=== PATIENT | female | born 1955 | race Caucasian/White ===

== ENCOUNTER → 2020-11-25 10:24 | Outpatient (CLI) | payer MEDICARE, SELFPAY ==
--- NOTE | ~2020-11-25 | XR_ITS ---
XR tibia fibula LT 2V DATE: 11/25/2020 11:12 INDICATION: Pain TECHNIQUE: AP and lateral views COMPARISON: 11/25/2020 left ankle FINDINGS: Status post total knee arthroplasty and patellar resurfacing. Diffuse osteopenia. No fracture, dislocation, periosteal reaction or bone destruction of the tibia or fibula. IMPRESSION: Status post left total knee arthroplasty with patellar resurfacing Osteopenia Reviewed, dictated and finalized at location B.
--- NOTE | ~2020-11-25 | XR_ITS ---
XR ankle LT min 3V DATE: 11/25/2020 11:12 INDICATION: Left ankle and foot pain TECHNIQUE: 4 views COMPARISON: None FINDINGS: Plantar and posterior calcaneal enthesopathy. Distal Achilles tendon calcification. Probable old cortical avulsion fracture at the dorsal aspect of the tarsal navicular bone. No left ankle fracture or dislocation or disruption of the ankle mortise. No periosteal reaction or b one destruction. IMPRESSION: Plantar and posterior calcaneal enthesopathy, distal Achilles tendon calcification Probable old cortical avulsion fracture of the dorsal aspect of the tarsonavicular bone Reviewed, dictated and finalized at location B. IMPRESSION: Plantar and posterior calcaneal enthesopathy, distal Achilles tendo n calcification Probable old cortical avulsion fracture of the dorsal aspect of the tarsonavicu lar bone
--- NOTE | ~2020-11-25 | XR_ITS ---
XR foot LT 2V DATE: 11/25/2020 11:12 INDICATION: Left foot pain TECHNIQUE: AP and lateral views COMPARISON: No prior left foot radiographs for comparison FINDINGS: There is a linear intra-articular minimally displaced fracture of the dorsal aspect of the dorsal navicular bone of uncertain age. This might be recent. No other fracture or dislocation is detected. Plantar and posterior calcaneal enthesopathy and distal Achilles tendon calcification. No periosteal reaction or bone destruction. IMPRESSION: Dorsal tarsal navicular intra-articular minimally displaced fracture of uncertain age; th is may be recent Reviewed, dictated and finalized at location B. IMPRESSION: Dorsal tarsal navicular intra-articular minimally displaced fractur e of uncertain age; this may be recent
== END ==
PROVIDERS: PCP Internal Medicine; Visit Provider Nurse Practitioner
DX: S92.252A Displaced fracture of navicular [scaphoid] of left foot, initial encounter for closed fracture (principal); M85.862 Other specified disorders of bone density and structure, left lower leg
CPT/HCPCS: 73590; 73610; 73620

== ENCOUNTER → 2021-01-17 08:23 | Outpatient (CLI) | payer MEDICARE, SELFPAY ==
--- NOTE | ~2021-01-17 | DEXA_ITS ---
Bone Density Report Name: Jacqui Fatima Age: 65 Sex: Female Ethnicity: White Date of : 1955 Indication: postmenopausal; screening for osteoporosis; height loss; prior fracture; end stage renal disease; hysterectomy; Referring Provider: Phylicia Deshpande Study: Bone densitometry was performed. Exam Date: January 17, 2021 Accession number: [id number] Bone Density: Region BMD T-score Z-score Classification AP Spine (L1-L4) 0.898 -1.4 0.5 Osteopenia Femoral Neck (Left) 0.692 -1.4 0.2 Osteopenia Total Hip (Left) 0.857 -0.7 0.6 Normal Femoral Neck (Right) 0.675 -1.6 0.0 Osteopenia Total Hip (Right) 0.843 -0.8 0.5 Normal Total Hip Mean 0.850 -0.8 0.6 Normal World Health Organization criteria for BMD impression classify patients as: Normal (T-score at or above -1.0), Osteopenia (T-score between -1.0 and -2.5), or Osteoporosis (T-score at or below -2.5). 10-year Fracture Risk(1): Major Osteoporotic Fracture 14% Hip Fracture 1.6% Reported Risk Factors: [place] (), Neck BMD=0.675, BMI=32.5, previous fracture (1) FRAX(R) Version 3.08. Fracture probability calculated for an untreated patient. Fracture probability may be lower if the patient has received treatment. Clinical Information Provided by Patient: Has had a low trauma fracture Has the following medical conditions: End stage renal disease, Hysterectomy, STAGE 3 RENAL DISEASE Patient maximum height was 67 Menopause Age: 49 No regular weight bearing exercise Does not regularly consume dairy products Onset of menses at age 16 Number of children 3 Impression: The patient has low bone mass, based on the Right Femoral Neck T-score. The patient has an estimated ten-year risk of hip fracture of 1.6% and an estimated ten-year risk of major fracture of 14%, based on the WHO FRAX algorithm. The patient has risk factors, including: previous fracture. Discussion: BONE DENSITY IS LOW AT ONE OR MORE SKELETAL SITES. This patient's lowest T-score is low at one or more skeletal sites. It meets the World Health Organization's (WHO) criteria for ?low bone mass? (T-score between -1.0 and -2.5). The patient's 10-year risk of fracture as calculated by FRAX is less than the threshold where pharmacological therapy is recommended by the National Osteoporosis Foundation (NOF). However, all treatment decisions require clinical judgment and consideration of individual patient factors, including patient preferences, comorbidities, previous drug use, risk factors not captured in the FRAX model (e.g., frailty, falls, vitamin D deficiency, increased bone turnover, interval significant decline in bone density) and possible under or overestimation of fracture risk by FRAX. The patient should follow a healthful lifestyle (good nutrition with adequate calcium and vitamin D,
--- NOTE | ~2021-01-17 | MM_ITS ---
EXAMINATION: MM screening [facility] BI w spenser HISTORY: Screening mammogram TECHNIQUE: Craniocaudal and mediolateral oblique 3-D tomosynthesis images were obtained and synthetic 2-D images were generated. CAD analysis was submitted and interpreted. COMPARISON: 05/08/2019, 02/12/2016, 04/14/2011 BREAST PARENCHYMAL COMPOSITION: There are scattered areas of fibroglandular density. FINDINGS: There is no evidence of suspicious mass, calcification, or architectural distortion to sugg est malignancy in either breast. There has been no suspicious interval change. IMPRESSION: 1. No mammographic evidence of malignancy. 2. Recommend routine screening mammography in one year. BI-RADS Category 1: Negative Reviewed, dictated and finalized at location A.
== END ==
PROVIDERS: Visit Provider Nurse Practitioner
DX: Z12.31 Encounter for screening mammogram for malignant neoplasm of breast (principal); Z78.0 Asymptomatic menopausal state; M85.89 Other specified disorders of bone density and structure, multiple sites
CPT/HCPCS: 77063; 77067; 77080

== ENCOUNTER → 2022-01-09 11:37 | Outpatient (CLI) | payer MEDICARE, SELFPAY ==
--- NOTE | ~2022-01-09 | XR_ITS ---
EXAMINATION: XR chest 2V Exam Date/Time: 01/09/2022 11:40 CDT HISTORY: R05.9 - Cough, unspecified Comparison: 03/19/2018. RESULT: Lines, tubes, and devices: None. Lungs and pleura: Subtle diffuse reticulonodular opacities. Right lower lung granuloma. Cardiomediastinal silhouette: Stable cardiomediastinal silhouette. Other: No acute osseous or upper abdominal finding. IMPRESSION: Pulmonary opacities may reflect mild senescent change or bronchiolitis, as can be seen with atypical infection, asthma, aspiration, and small airways disease. Reviewed, dictated and finalized at location K.
== END ==
PROVIDERS: PCP Internal Medicine; Visit Provider Nurse Practitioner
DX: R05.9 Cough, unspecified (principal); R91.8 Other nonspecific abnormal finding of lung field
CPT/HCPCS: 71046

== ENCOUNTER → 2022-01-19 14:46 | Outpatient (CLI) | payer MEDICARE, SELFPAY ==
--- NOTE | ~2022-01-19 | XR_ITS ---
EXAMINATION: XR chest 2V 01/19/2022 15:26 INDICATION: Cough PROCEDURE: 2 view chest COMPARISON: Comparison to multiple prior studies sequentially, with oldest reviewed study dated 02/20. FINDINGS: The lungs are clear. The cardiomediastinal silhouette is within normal limits. There are no pleural effusions. There is no pneumothorax suspected. IMPRESSION: 1: NO ACUTE CARDIOPULMONARY DISEASE. Reviewed, dictated and finalized at location A.
== END ==
PROVIDERS: PCP Internal Medicine; Visit Provider Nurse Practitioner
DX: R05.9 Cough, unspecified (principal)
CPT/HCPCS: 71046

== ENCOUNTER 2022-05-15 08:32 | Outpatient (CLI) | payer MEDICARE, SELFPAY ==
--- NOTE | ~2022-05-15 | XR_ITS ---
XR chest 2V DATE: 05/15/2022 09:59 INDICATION: Cough TECHNIQUE: PA and lateral views COMPARISON: 01/19/2022 2 view chest FINDINGS: Normal heart size. Aortic arch calcification. No hilar or mediastinal enlargement. No pulmo nary infiltrate or consolidation, pleural effusion or pulmonary vascular congestion or pneumothorax. Osteopenia. IMPRESSION: No active cardiopulmonary disease Aortic atherosclerosis No significant change since 01/19/2022 Reviewed, dictated and finalized at location A.
--- NOTE | 2022-05-15 09:03 | ECHO_ITS ---
Patient Info Name: Jacqui Fatima Age: 66 years : 1955 Gender: Female Ht: 67 in Wt: 205 lbs BSA: 2.13 m2 HR: 78 bpm BP: 105 / 66 mmHg Technical Quality: Good Exam Date: 05/15/2022 9:34 AM Exam Location: [facility] Patient Status: Outpatient Admit Date: 05/15/2022 Staff Ordering Physician: Tim Perera APRN Program Attendant: Niharika Mercado RDCS Attending Provider: Tim Perera APRN Referring Physician: Trever COTTRELL; Exam Type: CA echo doppler color flow Study Info Indications - fatgue Complete two-dimensional, color flow and Doppler transthoracic echocardiogram is performed. Summary 1. Complete two-dimensional, color flow and Doppler transthoracic echocardiogram is performed. 2. Left ventricular chamber dimension is normal. 3. Left ventricular systolic function is normal, estimated at 60-65%. 4. The left ventricular diastolic function is abnormal. 5. E/e' 12 is mildly elevated. 6. Left atrial chamber dimension is mildly enlarged. 7. There is mild aortic valve sclerosis. 8. There is mild mitral valve regurgitation. 9. There is mild tricuspid valve regurgitation. 10. No pulmonary hypertension, estimated pulmonary arterial systolic pressure is 30 mmHg. Left Ventricle E/e' 12 is mildly elevated. Left ventricular chamber dimension is normal. Left ventricular systolic function is normal, estimated at 60-65%. The left ventricular diastolic function is abnormal. Right Ventricle Right ventricular chamber dimension is normal. Right ventricular systolic function is normal. Left Atria Left atrial chamber dimension is mildly enlarged. Right Atria Right atrial chamber dimension is normal. Aortic Valve The aortic valve is trileaflet. There is mild aortic valve sclerosis. There is no aortic valve stenosis. There is no aortic valve regurgitation. Pulmonic Valve There is no pulmonic regurgitation. Mitral Valve There is no mitral valve stenosis. There is mild mitral valve regurgitation. Tricuspid Valve There is mild tricuspid valve regurgitation. No pulmonary hypertension, estimated pulmonary arterial systolic pressure is 30 mmHg. Pericardium/Pleural There is no pericardial effusion. Inferior Vena Cava Normal inferior vena cava with >50% collapse upon inspiration consistent with normal right atrial pressure, 5 mmHg. Aorta The aortic root size at the sinus of Valsalva is normal. Left Ventricular Outflow Tract Name Value Normal LVOT 2D LVOT Diameter 2.0 cm LVOT Doppler LVOT Peak Gradient 5 mmHg LVOT Mean Gradient 3 mmHg LVOT VTI 28 cm LVOT VTI/AV VTI Ratio 0.8 LVOT Stroke Volume 86 ml LVOT CO 14.5 l/min LVOT CI 6.8 l/min/m2 Pulmonic Valve Name Value Normal
== END 2022-05-15 08:33 | disposition home or self-care (01) ==
PROVIDERS: PCP Internal Medicine; Visit Provider Nurse Practitioner
DX: R53.83 Other fatigue (principal); T50.B95A Adverse effect of other viral vaccines, initial encounter; Z79.899 Other long term (current) drug therapy; R05.9 Cough, unspecified; I70.0 Atherosclerosis of aorta; I34.0 Nonrheumatic mitral (valve) insufficiency; I36.1 Nonrheumatic tricuspid (valve) insufficiency; I35.0 Nonrheumatic aortic (valve) stenosis
CPT/HCPCS: 71046; 93306

== ENCOUNTER 2022-05-17 11:05 | Outpatient (CLI) | payer MEDICARE, SELFPAY ==
--- NOTE | ~2022-05-17 | US_ITS ---
EXAMINATION: US renal BI DATE: 05/17/2022 11:41 INDICATION: Stage IIIB chronic kidney disease TECHNIQUE: Multiple ultrasound grayscale images of the kidneys were obtained. COMPARISON: None. FINDINGS: The right kidney measures 9.6 x 4.1 x 4.6 cm. The left kidney measures 9.8 x 4.9 x 3.8 cm. The kidney s demonstrate normal echogenicity. There is no hydronephrosis in either kidney. No stones identified . The bladder is normal. IMPRESSION: 1. Normal kidneys without hydronephrosis. Reviewed, dictated and finalized at location A. FURRING INSTALLER
== END 2022-05-17 11:06 | disposition home or self-care (01) ==
PROVIDERS: PCP Internal Medicine; Visit Provider Internal Medicine Nephrology
DX: N18.32 Chronic kidney disease, stage 3b (principal)
CPT/HCPCS: 76775

== ENCOUNTER 2022-07-01 10:55 | Outpatient (CLI) | payer MEDICARE, SELFPAY ==
--- NOTE | 2022-06-25 12:54 | PC.NURSE ---
Pre Radiology instructions Report to the outpatient [facility] on date _07/01/22 @ 1100____ Procedure Time: _1PM___ YOU MAY BE MONITORED AT HOSPITAL FOR UP TO 4 HOURS AFTER YOUR PROCEDURE. A visitors will be allowed to accompany the patient into the hospital. ?The visitor will be instructed to remain with patient at all times or leave the building due to restrictions.? We will allow the visitor to come back to the postoperative area when patient is ready.? NO children visitors allowed at this time. You and your visitor will be asked to self-screen and do not enter if you have any COVID symptoms. A mask is REQUIRED within the hospital. Patients are to have no food or drink 6 hours prior to procedure time ([id number] AM) Driving will be restricted after the procedure, you must have a person to drive you home. Labs will be drawn in preop area and once reviewed, you will be taken to radiology area for procedure. When the procedure is completed, you will be taken to outpatient where you will be monitored for several hours. You may have one visitor in this area. Other than holding anti-coagulants, patient may take other medication(s) as scheduled. Prior to your appointment date patients are instructed to hold anti-coagulants after discussing with ordering provider to stop. If unable to discontinue anti-coagulants please notify radiologist. ? No aspirin or warfarin (Coumadin) for 7 days prior to the procedure. ? No clopidogrel (Plavix), ticagrelor (Brilinta), prasugrel (Effient) or dabigatran (Pradaxa) for 5 days prior to the procedure. ? No rivaroxaban (Xarelto), apixaban (Eliquis), dipyridamole (Aggrenox or Persantine) or cilostazol (Pletal) for 2 days prior to the procedure. Medications to discontinue per physician: ___N/A Date to take last dose: Please leave all valuables, including medications, at home the day of procedure. The hospital will not accept responsibility for valuables. Wear comfortable, loose fitting clothing.? Follow any additional instructions given to you from ordering provider. Telephone instructions given to ____PT and asked if any additional questions and then verbalized understanding. Patient advised to call scheduling provider office or registration scheduling [phone] if any additional questions.
[2022-06-25 13:00] VITALS: BMI 34.0
[2022-07-01] VITALS (8 sets, daily range): BP systolic 92–123; BP diastolic 40–92; PULSE 51–76; RESP 12–16; TEMP 37.2; O2SAT 93–100
--- NOTE | ~2022-07-01 | US_ITS ---
EXAMINATION: US biopsy renal DATE: 07/01/2022 13:38 INDICATION: Chronic kidney disease stage III. TECHNIQUE: The procedure including the risks, benefits, and alternatives was discussed with the patie nt. Risks discussed included bleeding and infection. The patient understood the risks and agreed to p roceed. A timeout was performed to verify the patient's name, date of , and procedure to be p erformed. The skin overlying the left kidney was prepped and draped in usual sterile fashion. Anest hetic was administered with 1% lidocaine subcutaneously. An 18 gauge core biopsy needle was then use d to obtain 8 core biopsy specimens under continuous sonographic guidance. The entry site was cleaned and dressed. There were no immediate complications. FINDINGS: Ultrasound images demonstrate the needle in the kidney. IMPRESSION: 1. Ultrasound-guided random left kidney core needle biopsy. Reviewed, dictated and finalized at location A. UP AND CHARGER
[2022-07-01] MEDS: SODIUM CHLORIDE 0.9% IV 1,000 ML 30 ML IV CONT (11:36)
[2022-07-01 11:48] LABS: Mean Platelet Volume 11.5 fl (7.4-10.4); Platelet Count Result 160 k/mm3 (150-375)
[2022-07-01 11:57] LABS: INR 1.1; Prothrombin Time 13.5 Seconds (11.1-14.7)
== END 2022-07-01 16:32 | disposition home or self-care (01) ==
PROVIDERS: Radiology Diagnostic Radiology; PCP Internal Medicine; Visit Provider Internal Medicine Nephrology
PROC: (CPT 76942; principal; 2022-07-01 13:00)
DX: R76.0 Raised antibody titer (principal); N18.32 Chronic kidney disease, stage 3b; I12.9 Hypertensive chronic kidney disease with stage 1 through stage 4 chronic kidney disease, or unspecified chronic kidney disease
CPT/HCPCS: 36415; 50200; 76942; 85049; 85610; 88300; 88305; 88313; 88329; 88346; 88348; 88350; J7030

== ENCOUNTER 2023-02-03 08:50 | Outpatient (CLI) | payer MEDICARE, SELFPAY ==
--- NOTE | ~2023-02-03 | XR_ITS ---
EXAMINATION: XR UGIAC w barium swallow DATE: 02/03/2023 09:22 INDICATION: Chest pain TECHNIQUE: The patient drank thick barium, gas-producing crystals, and thin barium. A total of 1005 f luoroscopic images of the esophagus, stomach, and proximal small bowel were obtained. Fluoroscopy exp osure time was 1.5 minutes. Total DAP was 7.319 Gycm^2 COMPARISON: None. FINDINGS: The esophagus is normal without mass or stricture. Esophageal motility is normal. Small sli ding-type hiatal hernia with gastroesophageal junction located approximately 3 cm above level of the diaphragm. There was gastroesophageal reflux of a large amount of contrast extending cephalad to the level of the cervical esophagus with provocative maneuvers. 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 The proximal small bowel is normal. IMPRESSION: 1. Small sliding-type hiatal hernia with gastroesophageal reflux with provocative maneuvers. 2. 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 Reviewed, dictated and finalized at location A. IMPRESSION: 1. Small sliding-type hiatal hernia with gastroesophageal reflux with provocati ve maneuvers. 2. Decreased gastric opacity consistent with reported history of prior sleeve g astrectomy.
== END 2023-02-03 08:51 | disposition home or self-care (01) ==
PROVIDERS: PCP Nurse Practitioner Family; Visit Provider Nurse Practitioner Family
DX: K21.9 Gastro-esophageal reflux disease without esophagitis (principal); R07.89 Other chest pain; K44.9 Diaphragmatic hernia without obstruction or gangrene
CPT/HCPCS: 74246

== ENCOUNTER 2023-03-31 08:00 | Outpatient (CLI) | payer MEDICARE, SELFPAY ==
--- NOTE | ~2023-03-31 | MM_ITS ---
EXAMINATION: MM screening [facility] BI w spenser HISTORY: Screening TECHNIQUE: Craniocaudal and mediolateral oblique 3-D tomosynthesis images were obtained and synthetic 2-D images were generated. CAD analysis was submitted and interpreted. COMPARISON: Comparison to multiple prior studies sequentially, with oldest reviewed study dated 10/2025. BREAST PARENCHYMAL COMPOSITION: There are scattered areas of fibroglandular density. FINDINGS: There is no evidence of suspicious mass, calcification, or architectural distortion to sugg est malignancy in either breast. There has been no suspicious interval change. IMPRESSION: 1. No mammographic evidence of malignancy. 2. Recommend routine screening mammography in one year. BI-RADS Category 1: Negative Reviewed, dictated and finalized at location A.
== END 2023-03-31 08:01 | disposition home or self-care (01) ==
PROVIDERS: PCP Nurse Practitioner Family; Visit Provider Nurse Practitioner Family
DX: Z12.31 Encounter for screening mammogram for malignant neoplasm of breast (principal)
CPT/HCPCS: 77063; 77067

== ENCOUNTER 2023-09-09 14:52 | Outpatient (CLI) | payer MEDICARE, SELFPAY ==
--- NOTE | ~2023-09-09 | XR_ITS ---
EXAMINATION: XR chest 2V DATE: 09/09/2023 14:47 INDICATION: Cough. COVID-19 positive. TECHNIQUE: Frontal and lateral views of the chest were obtained. COMPARISON: Chest 2 views 05/15/2022 FINDINGS: There is no pneumonia, pleural effusion, or pneumothorax. The heart size is normal. IMPRESSION: 1. No acute cardiopulmonary disease. Reviewed, dictated and finalized at location A. NG MAKER HAND
[2023-09-09 15:57] LABS: Influenza A QL RT-PCR Negative (Negative); Influenza B QL RT-PCR Negative (Negative); RSV RNA, RT-PCR Negative (Negative); SARS-CoV-2 RNA PCR Negative (Negative)
== END 2023-09-09 14:53 | disposition home or self-care (01) ==
PROVIDERS: PCP Nurse Practitioner Family; Visit Provider Nurse Practitioner Family
DX: R05.9 Cough, unspecified (principal); R50.9 Fever, unspecified; R07.81 Pleurodynia; Z20.822 Contact with and (suspected) exposure to COVID-19
CPT/HCPCS: 71046; 87637

== ENCOUNTER 2023-10-13 13:16 | Outpatient (CLI) | payer MEDICARE, SELFPAY ==
--- NOTE | ~2023-10-13 | XR_ITS ---
XR chest 2V DATE: 10/13/2023 13:44 INDICATION: Shortness of breath, productive cough, fever TECHNIQUE: PA and lateral views COMPARISON: 09/09/2023 PA and lateral chest FINDINGS: Normal heart size. No hilar or mediastinal enlargement. No pulmonary infiltrate or consolid ation, pleural effusion or pulmonary vascular congestion or pneumothorax. Aortic arch calcification, minimal aortic unfolding. Osteopenia. IMPRESSION: No active cardiopulmonary disease Reviewed, dictated and finalized at location B.
[2023-10-13 14:55] LABS: Influenza A QL RT-PCR Negative (Negative); Influenza B QL RT-PCR Negative (Negative); RSV RNA, RT-PCR Negative (Negative); SARS-CoV-2 RNA PCR Negative (Negative)
== END 2023-10-13 13:17 | disposition home or self-care (01) ==
PROVIDERS: PCP Nurse Practitioner Family; Visit Provider Nurse Practitioner Family
DX: R50.9 Fever, unspecified (principal); J04.0 Acute laryngitis; R06.02 Shortness of breath; R05.9 Cough, unspecified
CPT/HCPCS: 71046; 87637

== ENCOUNTER 2024-05-15 11:36 | Outpatient (CLI) | payer MEDICARE, SELFPAY ==
[2024-05-15 11:55] LABS: Basophils Absolute Auto 0.1 K/mm3 (0.0-0.1); Basophils Percent Auto 1.1 % (0.2-1.2); Eosinophils Absolute Auto 0.1 K/mm3 (0-0.3); Eosinophils Percent Auto 2.5 % (0-4.4); Hematocrit 35.5 % (37.0-47.0); Hemoglobin 11.2 g/dL (12.0-15.0); Immature Granulocyte Absolute 0.02 K/mm3 (0.00-0.031); Immature Granulocyte Percent A 0.4 % (0-0.5); Lymphocytes Absolute Auto 1.22 K/mm3 (0.9-3.2); Lymphocytes Percent Auto 21.4 % (18.3-44.2); Mean Corpuscular HGB Conc 31.5 g/dl (32-36); Mean Corpuscular Hemoglobin 26.6 pg (26-34); Mean Corpuscular Volume 84.3 fl (80-100); Mean Platelet Volume 11.5 fl (7.4-10.4); Monocytes Absolute Auto 0.3 K/mm3 (0.1-0.6); Neutrophils Absolute Auto 3.9 K/mm3 (1.3-6.7); Neutrophils Percent Auto 68.6 % (45.5-73.1); Platelet Count Result 216 k/mm3 (150-375); Red Blood Count 4.21 M/mm3 (4.2-5.4); Red Cell Distribution Width 14.6 % (11.5-14.5); White Blood Count 5.7 K/mm3 (4.5-10.0)
[2024-05-15 14:55] LABS: Iron 28 ug/dL (37-170)
[2024-05-15 14:57] LABS: Alanine Aminotransferase 27 U/L (6-35); Albumin Level 4.4 g/dL (3.5-5.1); Alkaline Phosphatase 89 U/L (38-126); Anion Gap 10 mmol/L (4-12); Aspartate Amino Transferase 32 U/L (14-36); Bilirubin,Total 0.9 mg/dL (0.2-1.3); Blood Urea Nitrogen 15 mg/dL (7-17); Calcium 9.6 mg/dL (8.4-10.2); Carbon Dioxide 25 mmol/L (22-30); Chloride 103 mmol/L (98-107); Estimated Glomerular Filt Rate 41; Glucose 89 mg/dL (65-110); Potassium 3.5 mmol/L (3.4-5.0); Sodium 138 mmol/L (137-145)
[2024-05-15 15:04] LABS: Percent Iron Saturation 6 % (20-50)
[2024-05-15 15:30] LABS: Ferritin 9.77 ng/mL (11.1-264)
[2024-05-15 16:01] LABS: Folic Acid 6.1 ng/mL (2.76->20)
[2024-05-16 11:09] LABS: Protein, Total 6.6 g/dL (6.1-8.1)
[2024-05-21 16:08] LABS: Albumin 3.8 g/dL (3.8-4.8); Alpha 1 Globulin 0.3 g/dL (0.2-0.3); Alpha 2 Globulin 0.8 g/dL (0.5-0.9); Beta 1 Globulin 0.6 g/dL (0.4-0.6); Gamma Globulin 0.9 g/dL (0.8-1.7)
== END 2024-05-15 11:37 | disposition home or self-care (01) ==
PROVIDERS: Internal Medicine; PCP Nurse Practitioner Family; Visit Provider Internal Medicine Hematology & Oncology
DX: D64.9 Anemia, unspecified (principal)
CPT/HCPCS: 36415; 80053; 82607; 82728; 82746; 83540; 83550; 84155; 84165; 85025

== ENCOUNTER 2024-07-24 15:43 | Outpatient (CLI) | payer MEDICARE, SELFPAY ==
--- NOTE | ~2024-07-24 | XR_ITS ---
XR abdomen/kub 1V Ordering provider: Emilie Kohler APRN History: . N20.0 - Calculus of kidney . Comparison: None. FINDINGS: BOWEL: Nonobstructive bowel gas pattern. ORGANOMEGALY: None. SIGNIFICANT PATHOLOGIC CALCIFICATIONS: Cholelithiasis with calcification seen in the right upper abdo men. OTHER: No free air is seen under the diaphragm. Degenerative changes of the spine. IMPRESSION: NO ACUTE ABDOMINAL FINDINGS. Cholelithiasis. Ultrasound of the gallbladder is advised. Reviewed, dictated and finalized at location A. ET PRESIDENT
== END 2024-07-24 15:44 | disposition home or self-care (01) ==
LOC: MICIMG 15:45
PROVIDERS: PCP Nurse Practitioner Family; Visit Provider Nurse Practitioner Family
DX: N20.0 Calculus of kidney (principal)
CPT/HCPCS: 74018

== ENCOUNTER 2024-08-09 14:15 | Outpatient (CLI) | payer MEDICARE, SELFPAY ==
[2024-08-09 14:32] LABS: Basophils Absolute Auto 0.1 K/mm3 (0.0-0.1); Basophils Percent Auto 1.1 % (0.2-1.2); Eosinophils Absolute Auto 0.3 K/mm3 (0-0.3); Hematocrit 38.4 % (37.0-47.0); Hemoglobin 12.4 g/dL (12.0-15.0); Immature Granulocyte Absolute 0.03 K/mm3 (0.00-0.031); Immature Granulocyte Percent A 0.5 % (0-0.5); Lymphocytes Absolute Auto 1.22 K/mm3 (0.9-3.2); Lymphocytes Percent Auto 18.6 % (18.3-44.2); Mean Corpuscular HGB Conc 32.3 g/dl (32-36); Mean Corpuscular Hemoglobin 28.8 pg (26-34); Mean Corpuscular Volume 89.1 fl (80-100); Mean Platelet Volume 12.5 fl (7.4-10.4); Monocytes Absolute Auto 0.4 K/mm3 (0.1-0.6); Monocytes Percent Auto 5.8 % (2.6-8.5); Neutrophils Absolute Auto 4.6 K/mm3 (1.3-6.7); Platelet Count Result 187 k/mm3 (150-375); Red Blood Count 4.31 M/mm3 (4.2-5.4); Red Cell Distribution Width 18.1 % (11.5-14.5); White Blood Count 6.6 K/mm3 (4.5-10.0)
[2024-08-09 14:44] LABS: Anisocytosis 1+; Atypical Lymphocytes Present; Platelet Estimate Adequate (Adequate); Schistocytes None Seen
[2024-08-09 14:45] LABS: Ovalocytes 1+
--- OUTSIDE RECORDS SUMMARY | 2024-08-09 14:56 | XMS_ITS | Clinical Summary ---
Author Organization [facility] Andreina martinez Address [address] [place] [id number] Phone Care Team Providers Care Quality Process Lead Name Role Phone Reji Lucero Primary Care Provider [phone] Allergies No known active allergies Medications Medication Sig Dispensed Refills Start Date End Date Status hydroxychloroquine (PLAQUENIL) 200 MG tablet 02/12/2022 Active escitalopram (LEXAPRO) 10 MG tablet Take 10 mg by mouth 1 (one) time each day Active hydroCHLOROthiazide (HYDRODIURIL) 25 MG tablet Take 25 mg by mouth Prn swelling Active topiramate (TOPAMAX) 100 MG tablet Take 100 mg by mouth in the morning and 100 mg in the evening. Active diphenhydrAMINE (SOMINEX) 25 MG tablet Take 25 mg by mouth at night if needed Active amLODIPine-atorvastat in (CADUET) 5-20 MG per tablet Take 1 tablet by mouth in the morning and 1 tablet in the evening. Active Calcium Carbonate-Vit D-Min (CALCIUM 1200 PO) Take by mouth Active atorvastatin (LIPITOR) 20 MG tablet Take 20 mg by mouth 1 (one) time each day Active omeprazole (PriLOSEC) [address] capsule Take 20 mg by mouth 1 (one) time each day Active aspirin 81 MG chewable tablet Chew 81 mg 1 (one) time each day Active Cholecalciferol (Vitamin D3) 50 MCG (2000 UT) tablet Take 4,000 Units by mouth Active senna-docusate sodium (SENOKOT-S) 8.6-50 MG tablet Take 1 tablet by mouth in the morning and 1 tablet in the evening. Active folic acid (FOLVITE) 1 MG tablet Take 1 mg by mouth 1 (one) time each day Active Active Problems Problem Noted Date Diagnosed Date Chronic kidney disease stage 3B 05/10/2022 Nodule of lung 03/17/2022 Calcium pyrophosphate deposition disease 022 Coronary arteriosclerosis 08/03/2018 Overview (05/10/2022): Mild with just 30% plaque noted at the ostium of the right coronary artery with a calcified plaque the left main coronary artery, left anterior descending coronary artery and left circumflex arteries were without significant stenosis on CT coronary angiogr Dyslipidemia 06/09/2018 Overview (05/10/2022): On atorvastatin LDL not at goal for patient with coronary artery disease Transient cerebral ischemia 06/09/2018 Overview (05/10/2022): In August 2017 which has not recurred with an event monitor showing no evidence of atrial fibrillation in June 2018 Essential hypertension 09/16/2017 Essential tremor 09/16/2017 Social History Tobacco Use Types Packs/Day Years Used Date Smoking Tobacco: Former Cigarettes Smokeless Tobacco: Never Tobacco Cessation:Counseling Given: Not Answered Alcohol Use Standard Drinks/Week Comments Yes 0 (1 standard drink = 0.6 oz pur e alcohol) one a week Sex and Gender Information Value Date Recorded Sex Assigned at Not on file Gender Identity Not on file Sexual Orientation Not on file Last Filed Vital Signs Vital Sign Reading Time Taken Comments Blood Pressure - - Pulse - - Temperature 36.4 ??C (97.5 ??F) 05/10/2022 10:15 AM C DT Respiratory Rate - - Oxygen Saturation - - Inhaled Oxygen Concentration - - Weight 93.4 kg (206 lb) 05/10/2022 10:15 AM CDT Height 170.2 cm (5' 7 ) 05/10/2022 10:15 AM CDT Body Mass Index 32.26 05/10/2022 10:15 AM CDT Plan of Treatment Health Maintenance Due Date Last Done Comments Pneumococcal PPSV23/PCV13 65 + Years / High and Highest Risk (1 of 4 - PCV) 1961 Influenza Vaccine (#1) 2024 Care Teams Quality Process Lead Relationship Specialty Start Date End Date Reji Lucero DO [address] [place] [id number] PCP - General Internal Medicine 05/03/22
--- OUTSIDE RECORDS SUMMARY | 2024-08-09 14:56 | XMS_ITS | Encounter Summary ---
Author Organization [facility] Facility Care Team Providers Care Registered Dental Assistant Name Role Phone Denys Smith MD Primary Care Provider [phone] Reji Lucero DO Primary Care Provider [phone] Waqas Araujo MD Primary Care Provider [phone] Jace Cheek MD Unavailable [phone] Encounter Details Date Type Department Care Team (Latest Contact Info) Description 06/09/2018 Orders Only [facility] CLINCONV ProviderLencho MD [address] [place] [id number] Social History Tobacco Use Types Packs/Day Years Used Date Smoking Tobacco: Former Smokeless Tobacco: Never Alcohol Use Standard Drinks/Week Comments No 0 (1 standard drink = 0.6 oz pur e alcohol) Comments No Sex and Gender Information Value Date Recorded Sex Assigned at Not on file Legal Sex Female 11:42 PM ENVELOPE MACHINE OPERATOR Gender Identity Female 05/18/2022 8:41 AM ENVELOPE MACHINE OPERATOR Sexual Orientation Straight 05/18/2022 8: 41 AM ENVELOPE MACHINE OPERATOR documented as of this encounter Plan of Treatment Not on file documented as of this encounter Procedures Procedure Name Priority Date/Time Associated Diagnosis Comments CARDIOLOGY REPORT 06/09/2018 12: 00 AM ENVELOPE MACHINE OPERATOR CARDIOLOGY REPORT 06/09/2018 12: 00 AM ENVELOPE MACHINE OPERATOR documented in this encounter Results * CARDIOLOGY REPORT (06/09/2018 12:00 AM ENVELOPE MACHINE OPERATOR) Anatomical Region Laterality Modality Other Narrative 06/09/2018 12:00 AM ENVELOPE MACHINE OPERATOR Ordered by an unspecified provider. us Historical Provider [facility] CARDIAC SERVICES PROCE DURES Final Result * CARDIOLOGY REPORT (06/09/2018 12:00 AM ENVELOPE MACHINE OPERATOR) Anatomical Region Laterality Modality Other Narrative 06/09/2018 12:00 AM ENVELOPE MACHINE OPERATOR Ordered by an unspecified provider. us Historical Provider CV CARDIAC SERVICES PROCE DURES Final Result documented in this encounter Visit Diagnoses Not on filedocumented in this encounter Additional Health Concerns Infection Onset Date Last Indicated Resolved Time COVID: Suspected 01/21/2023 01/21/2023 01/21/2023 2:44 PM CDT COVID: Suspected 01/21/2023 01/21/2023 01/21/2023 8:57 PM CDT documented as of this encounter Care Teams Registered Dental Assistant Relationship Specialty Start Date End Date Denys Smith MD [address] [facility] [address] [facility] [address] [place] [address] PCP - General 09/14/17 03/02/22 Reji Lucero DO [address] [place] [address] [address] [place] [address] PCP - General Internal Medicine 03/03/22 02/01/23 Waqas Araujo MD [address] [place] [address] [address] [place] [address] PCP - General Family Practice 02/02/23 Jace Cheek MD [address] [facility] [address] [place] [address] Consulting Physician Neurosurgery 05/30/23 documented as of this encounter
--- OUTSIDE RECORDS SUMMARY | 2024-08-09 14:56 | XMS_ITS | Clinical Summary ---
Author Organization [facility] Address [address] [place] [address] Care Team Providers Care Inclusion Intern Name Role Phone Waqas Araujo MD Primary Care Provider [phone] Allergies No known active allergies Medications amLODIPine-kassie zepril (LOTREL) 5-20 mg capsule Take 1 Capsule by mouth daily. Active aspirin (CAYLA CHEWABLE) 81 mg Tablet, Chewable Take 81 mg by mouth daily. Active cholecalciferol , Vitamin D3, 50 mcg (2,000 unit) Tablet Take 4,000 Units by mouth. Active diphenhydrAMINE (BENADRYL) 50 mg Tablet Take 50 mg by mouth daily at bedtime. Active hydroCHLOROthia zide 25 mg tablet Take 25 mg by mouth daily at bedtime. Active hydroxychloroqu ine (PLAQUENIL) 200 mg tablet Take 200 mg by mouth 2 times daily. Active rOPINIRole (REQUIP) 0.25 mg tablet TAKE 1 TABLET BY MOUTH EVERY NIGHT 1 TO 3 HOURS BEFORE BEDTIME 03/27/2024 Active topiramate (TOPAMAX) 50 mg tablet Take 50 mg by mouth daily. Active ferrous sulfate 325 mg (65 mg iron) tablet Take 325 mg by mouth daily with breakfast. Active Active Problems No known active problems Encounters Date Type Department Care Team Description 2024 External Device Data STL ABSTRACTION Provider, Abstract 2024 Orders Only [facility] - [place] [address] [place] [address] John Aponte MD Chronic anemia (Primary Dx) 08/02/2024 External Device Data STL ABSTRACTION Provider, Abstract 07/24/2024 External Device Data STL ABSTRACTION Provider, Abstract 05/24/2024 Orders Only [facility] [place] [address] [place] [address] John Aponte MD 05/22/2024 External Device Data STL ABSTRACTION Provider, Abstract 05/16/2024 Orders Only [facility] - [place] [address] [place] [address] John Aponte MD 05/15/2024 10:30 AM PC TECH Office Visit [facility] [place] [address] [place] [address] Ofe Crystal MD Chronic anemia (Primary Dx) from Last 3 Months Family History Medical History Relation Name Comments Colon Cancer Brother 1 62 Diabetes Brother 1 62 Heart Disease Brother 1 62 Colon Cancer Brother 2 61 No Known Problems Brother 3 72 No Known Problems Brother 4 64 Diabetes Brother 5 61 No Known Problems Child 1 48 No Known Problems Child 2 46 No Known Problems Child 3 41 Diabetes Father Heart Disease Father Diabetes Mother Heart Disease Mother Relation Name Status Comments Brother 1 62 Brother 2 61 Brother 3 72 Alive Brother 4 64 Alive Brother 5 61 Alive Child 1 48 Alive Child 2 46 Alive Child 3 41 Alive Father Mother Social History Tobacco Use Types Packs/Day Years Used Date Smoking Tobacco: Former Cigarettes 2 20 Q uit: 07/11/1997 Alcohol Use Standard Drinks/Week Comments Yes 0 (1 standard drink = 0.6 oz pur e alcohol) occassionally Comments Unknown Sex and Gender Information Value Date Recorded Sex Assigned at Not on file Legal Sex Female 9:35 AM CDT Gender Identity Not on file Sexual Orientation Not on file Last Filed Vital Signs Vital Sign Reading Time Taken Comments Blood Pressure 110/74 05/15/2024 10:37 AM PC TECH Pulse 59 05/15/2024 10:37 AM PC TECH Temperature 36.3 ??C (97.3 ??F) 05/15/2024 10:[address] Respiratory Rate 16 05/15/2024 10:37 AM PC TECH Oxygen Saturation 96% 05/15/2024 10:37 AM PC TECH Inhaled Oxygen Concentration - - Weight 85.3 kg (188 lb) 05/15/2024 10:37 AM PC TECH Height 167.6 cm (5' 6 ) 05/15/2024 10:37 AM PC TECH Body Mass Index 30.34 05/15/2024 10:37 AM PC TECH Plan of Treatment Upcoming Encounters Date Type Department Care Team (Late st Contact Info) Description 08/10/2024 8:30 AM PC TECH Office Visit [facility] [address] [facility] [address] [place] [address] John Aponte MD [address] [facility] [address] [place] [address] Health Maintenance Due Date Last Done Comments Pre-Diabetes and Diabetes Screening 1954 DTAP/TDAP/TD VACCINES (1 - Tdap) 1973 PNEUMOCOCCAL VACCINE 65+ YEA RS (1 of 2 - PCV) 1973 02/23/2013 Traditional Medicare (ACO) A nnual Wellness Visit 1973 ZOSTER VACCINE (1 of 2) 1973 BREAST CANCER SCREENING 1994 FIT-DNA Q 3 years 1999 FIT/FOBT Q 1 year 1999 Flex Sig/CT Colonography Q 5 years 1999 RSV VACCINE (60+ or ) (1 - Risk 60-74 years 1-dose series) 2014 OSTEOPOROSIS SCREENING 2019 INFLUENZA VACCINE (#1) 2024 03/20/2018, 2014 COLORECTAL SCREENING 05/15/2029 05/15/2019 Colorectal Cancer Screening 05/15/2029 Procedures Procedure Name Priority Date/Time Associated Diagnosis Comments PROTEIN ELECTROPHORESIS, CSF Routine 05/24/2024 12:55 PM PC TECH COMPREHENSIVE METABOLIC PANEL Routine 05/15/2024 9:02 AM PC TECH CBC WITH DIFFERENTIAL Routine 05/15/2024 8:46 AM PC TECH from Last 3 Months Results * PROTEIN ELECTROPHORESIS, CSF (05/24/2024 12:55 PM PC TECH) Cerebrospinal fluid CEREBROSPINAL FLUID / Unknown John Aponte MD BODY FLUIDS AND STOOLS Final Re sult * COMPREHENSIVE METABOLIC PANEL (05/15/2024 9:02 AM PC TECH) Blood us John Aponte MD CHEMISTRY ORDERABLES Final Resu lt * CBC WITH DIFFERENTIAL (05/15/2024 8:46 AM PC TECH) Blood John Aponte MD HEMATOLOGY ORDERABLES Final Res ult from Last 3 Months Insurance MEDICARE PART A AND B [employer] MEDICARE SUPP AESSI Care Teams Inclusion Intern Relationship Specialty Start Date End Date Waqas Araujo MD [address] [place] [phone] PCP - General Family Practice 05/15/24
--- OUTSIDE RECORDS SUMMARY | 2024-08-09 14:56 | XMS_ITS | Encounter Summary ---
Author Organization [facility] Address [address] [place] [address] Care Team Providers Care Deck Specialist Name Role Phone Waqas Araujo MD Primary Care Provider [phone] Encounter Details Date Type Department Care Team (Late st Contact Info) Description 2024 External Device Data STL ABSTRACTION Provider, Abstract NO ADDRESS ON FILE Social History Tobacco Use Types Packs/Day Years [...] on file Sexual Orientation Not on file documented as of this encounter Plan of Treatment Upcoming Encounters Date Type Department Care Team (Late st Contact Info) Description 08/10/2024 8:30 AM ANIMAL SHELTER CLERK Office Visit [facility] Oncology and Hematology - [place] [address] [place] [address] [address] John Aponte MD [address] [facility] [address] [place] [address] documented as of this encounter Visit Diagnoses Not on filedocumented in this encounter Care Teams Deck Specialist Relationship Specialty Start Date End Date Waqas Araujo MD [address] [place] [phone] PCP - General Family Practice 05/15/24 documented as of this encounter
--- OUTSIDE RECORDS SUMMARY | 2024-08-09 14:56 | XMS_ITS | Encounter Summary ---
Author Organization [facility] Facility Care Team Providers Care Flower Picker Name Role Phone Denys Smith MD Primary Care Provider [phone] Reji Lucero DO Primary Care Provider [phone] Waqas Araujo MD Primary Care Provider [phone] Jace Cheek MD Unavailable [phone] Encounter Details Date Type Department Care Team (Latest Contact Info) Description 06/07/2018 Orders Only [facility] CLINCONV ProviderLencho MD [address] [place] [address] Social History Tobacco Use Types Packs/Day Years Used Date Smoking Tobacco: Former Smokeless Tobacco: Never Alcohol Use Standard Drinks/Week Comments No 0 (1 standard drink = 0.6 oz pur e alcohol) Comments No Sex and Gender Information Value Date Recorded Sex Assigned at Not on file Legal Sex Female 11:42 PM CLIENT SUPPORT PROFESSIONAL Gender Identity Female 05/18/2022 8:41 AM CLIENT SUPPORT PROFESSIONAL Sexual Orientation Straight 05/18/2022 8: 41 AM CLIENT SUPPORT PROFESSIONAL documented as of this encounter Plan of Treatment Not on file documented as of this encounter Procedures Procedure Name Priority Date/Time Associated Diagnosis Comments SCAN - LABS 06/07/2018 12:00 AM CLIENT SUPPORT PROFESSIONAL documented in this encounter Results * SCAN - LABS (06/07/2018 12:00 AM CLIENT SUPPORT PROFESSIONAL) Narrative 06/07/2018 12:00 AM CLIENT SUPPORT PROFESSIONAL Ordered by an unspecified provider. us Historical Provider Final Res ult documented in this encounter Visit Diagnoses Not on filedocumented in this encounter Additional Health Concerns Infection Onset Date Last Indicated Resolved Time COVID: Suspected 01/21/2023 01/21/2023 01/21/2023 2:44 PM CDT COVID: Suspected 01/21/2023 01/21/2023 01/21/2023 8:57 PM CDT documented as of this encounter Care Teams Flower Picker Relationship Specialty Start Date End Date Denys Smith MD [address] [place] [address] PCP - General 09/14/17 03/02/22 Reji Lucero DO [address] [place] [address] PCP - General Internal Medicine 03/03/22 02/01/23 Waqas Araujo MD [address] [place] [address] PCP - General Family Practice 02/02/23 Jace Cheek MD [address] [place] [address] Consulting Physician Neurosurgery 05/30/23 documented as of this encounter
--- OUTSIDE RECORDS SUMMARY | 2024-08-09 14:56 | XMS_ITS | Referral Summary ---
Author Organization [facility] Address [address] [place] [address] Care Team Providers Care Mixing Tumbler Operator Name Role Phone Waqas Araujo MD Primary Care Provider [phone] Jace Cheek MD Unavailable [phone] Allergies No known active allergies Medications escitalopram (LEXAPRO) 10 mg tablet Take 1 tablet (10 mg total) by mouth daily Active hydroCHLOROthiazid e (HYDRODIURIL) 25 mg tablet Take 1 tablet (25 mg total) by mouth nightly Active diphenhydrAMINE (BENADRYL) 50 mg tablet Take 1 tablet (50 mg total) by mouth nightly Active multivitamin tablet Take 1 tablet by mouth daily Active magnesium oxide (MAG-OX) 400 mg (241.3 mg elemental magnesium) tablet daily 08/03/19 19 Active docusate sodium (COLACE) 100 mg capsule Take 1 capsule (100 mg total) by mouth daily Active amLODIPine-benazep riL (LOTREL 5-20) 5-20 mg per capsule Take 1 capsule by mouth daily Active aspirin 81 mg chewable tablet Take 1 tablet (81 mg total) by mouth daily Active hydrOXYchloroQUINE (PLAQUENIL) 200 mg tablet Take 2 tablets (400 mg total) by mouth daily 180 tablet 3 11/14/19 22 Active fluticasone propionate (FLONASE) 50 mcg/actuation nasal spray Administer 2 sprays into each nostril daily 16 g 11 02/04/20 22 Active albuterol HFA (PROVENTIL HFA,VENTOLIN HFA,PROAIR HFA) 90 mcg/actuation inhaler Inhale 2 puffs every 6 (six) hours as needed for wheezing 1 each 02/23/20 22 Active cholecalciferol (VITAMIN D-3) 2000 unit tablet Take 2 tablets (4,000 Units total) by mouth Active folic acid (FOLVITE) 1 mg tablet Take 1 tablet (1 mg total) by mouth daily Active senna-docusate (PERICOLACE) 8.6-50 mg Take 1 tablet by mouth 2 (two) times a day Active omeprazole (PriLOSEC) 40 mg capsule 12/22/19 23 Active atorvastatin (LIPITOR) 40 mg tablet Take 1 tablet (40 mg total) by mouth nightly 90 tablet 6 04/06/20 23 Active HYDROcodone-acetam inophen (NORCO) 5-325 mg per tabletIndications: Pain Take 1 tablet by mouth 3 (three) times a day as needed for pain 15 tablet 05/19/20 23 Active Additional Information Patient not taking.Reported on 05/25/2023 ondansetron ODT (ZOFRAN-ODT) 4 mg disintegrating tablet Take 1 tablet (4 mg total) by mouth 3 (three) times a day as needed for nausea or vomiting 20 tablet 2 05/19/20 23 Active isosorbide mononitrate ER (IMDUR) 30 mg 24 hr tablet TAKE 1 TABLET(30 MG) BY MOUTH DAILY 90 tablet 2 05/20/20 23 Active Additional Information Patient not taking.Reported on 05/25/2023 Active Problems Problem Noted Date Diagnosed Date Stroke-like symptoms 05/15/2023 SIMEON (acute kidney injury) 05/15/2023 Chronic left-sided low back pain with left-sided sciatica 05/15/2023 Cerebrovascular accident (CVA) 05/15/2023 Acute kidney injury superimposed on chronic kidn ey disease 05/15/2023 Abnormal stress test 03/01/2023 MATUTE (dyspnea on exertion) 03/01/2023 Abnormal laboratory test 05/18/2022 Stage 3b chronic kidney disease 05/10/2022 Chronic anemia 03/17/2022 Lung nodule 03/17/2022 Smoking greater than 30 pack years 03/17/2022 Subacute cough 02/03/2022 Assessment & Plan (01/21/2023 3:16 PM CDT): VSS, ill appearing, significant coughing, lungs bilaterally with mild wheeze and crackles Symptom duration 6-7 days with worsening including high grade fevers T-max 102F Immunocompromised status on plaquenil Rapid covid, flu negative. PCR send off pending Ordered chest x-ray stat Duo neb breathing treatment x 1 once today in the office. O2 saturation 97-99% post treatment, some subjective improvement Augmentin 875/125 mg BID and doxycyline 100 mg BID x 10 days Prednisone 40 mg taper Tessalon pearls as needed for cough OTC mucinex as cough expectorant, delsym as cough suppressant ER for worsening symptoms Calcium pyrophosphate deposition disease 022 Arthralgia 08/27/2021 Inflammatory arthritis 04/09/2021 High risk medication use 04/09/2021 Coronary arteriosclerosis 08/03/2018 Overview (05/12/2023): Mild with just 30% plaque noted at the ostium of the right coronary artery with a calcified plaque the left main coronary artery, left anterior descending coronary artery and left circumflex arteries were without significant stenosis on CT coronary angiogr Mild with just 30% plaque noted at the ostium of the right coronary artery with a calcified plaque the left main coronary artery, left anterior descending coronary artery and left circumflex arteries were without significant stenosis on CT coronary angiogr Mitral regurgitation 08/03/2018 Overview (03/30/2021): Mild echocardiogram done on 07/31/2018 Trace to mild on echocardiogram done on 07/30/2018 Abnormal CXR 08/03/2018 Overview (03/30/2021): With a 22 mm gradient across aortic valve due to increased flows across the LVOT with an LVOT gradient of 9 mmHg and not due to aortic stenosis with aortic valve by 2-D echo appears to open normally Ventricular ectopy 08/03/2018 Overview (02/03/2022): 14 and 17 beat run of nonsustained ventricular tachycardia and 2% burden of PVCs on a event monitor done in June 2018, normal LV function and no significant obstructive coronary artery disease by CTA Dyslipidemia 06/09/2018 Overview (11/14/2018): On atorvastatin LDL not at goal for patient with coronary artery disease Bradycardia 06/09/2018 Overview (11/14/2018): Asymptomatic, atrial bradycardia Transient cerebral ischemia 06/09/2018 Overview (05/12/2023): In August 2017 which has not recurred with an event monitor showing no evidence of atrial fibrillation in June 2018 In August 2017 which has not recurred with an event monitor showing no evidence of atrial fibrillation in June 2018 Chest pain 06/07/2018 Overview (11/14/2018): Recurrence with reportedly a normal treadmill treadmill stress echocardiogram done on 03/20/2018, however due to her multiple cardiac risk factors and recurrent chest pain she had a CTA of the coronary arteries which just showed a 30% calcified plaque at t Hypotension 09/16/2017 Overview (03/30/2021): Controlled Hypercholesterolemia 09/16/2017 Essential tremor 09/16/2017 Essential hypertension 09/16/2017 Transient neurological symptoms 09/16/2017 Knee joint replacement by other means 08/06/2014 Osteoarthrosis involving lower leg 05/13/2014 Overview (03/30/2021): 2015 IMO Updt Hypertensive urgency Immunizations Name Administration Dates Next Due Influenza, Quadrivalent, Spl it, Preservative Free, Intramuscular 03/20/2018 Influenza, Trivalent, Preservative Free, Intramu scular 04/30/2015 Influenza, Unspecified 04/24/2014,05/09/2013 Pneumococcal, Unspecified 02/23/2013 Social History Tobacco Use Types Packs/Day Years Used Date Smoking Tobacco: Former Cigarettes 2 26 1 972 - 1998 Smokeless Tobacco: Never Tobacco Cessation:Counseling Given: Not Answered Alcohol Use Standard Drinks/Week Comments No 0 (1 standard drink = 0.6 oz pur e alcohol) [facility] Utilities Answer Date Recorded In the past 12 months has th e electric, gas, oil, or water company threatened to shut off services in your home? No 05/16/2023 Social Connection and Isolat ion Panel [NHANES] Answer Date Recorded In a typical week, how many times do you talk on the phone with family, friends, or neighbors? More than three times a week 05/16/2023 How often do you get togethe r with friends or relatives? More than three times a week 05/16/2023 How often do you attend chur ch or shinto services? 1 to 4 times per year 05/16/2023 Do you belong to any clubs o r organizations such as gnosticist groups, unions, fraternal or athletic groups, or school groups? No 05/16/2023 How often do you attend meet ings of the clubs or organizations you belong to? Never 05/16/2023 Are you , , di vorced, , never , or living with a partner? 05/16/2023 AUDIT-C Answer Date Recorded Q1: How often do you have a drink containing alc ohol? Monthly or less 05/25/2023 Q2: How many drinks containi ng alcohol do you have on a typical day when you are drinking? 1 or 2 05/25/2023 Q3: How often do you have si x or more drinks on one occasion? Never 05/25/2023 Overall Financial Resource Strain (CARDIA) Answe r Date Recorded How hard is it for you to pa y for the very basics like food, housing, medical care, and heating? Not very hard 05/16/2023 Hunger Vital Sign Answer Date Recorded Within the past 12 months, y ou worried that your food would run out before you got the money to buy more. Never true 05/16/20 23 Within the past 12 months, t he food you bought just didn't last and you didn't have money to get more. Never true 05/16/2023 PRAPARE - Transportation Answer Date Re corded In the past 12 months, has l ack of transportation kept you from medical appointments or from getting medications? No 12/2022 In the past 12 months, has l ack of transportation kept you from meetings, work, or from getting things needed for daily living? No 05/16/2023 Housing Stability Vital Sign Answer Arthur e Recorded In the last 12 months, was t here a time when you were not able to pay the mortgage or rent on time? No 05/16/2023 In the last 12 months, how many places have you lived? 1 05/16/2023 In the last 12 months, was t here a time when you did not have a steady place to sleep or slept in a penitentiary (including now)? No 05/16/2023 Personal Safety Answer Date Recorded Have you ever been in or are you currently in a harmful physical or emotional relationship or is someone making you feel afraid or unsafe? Denies 05/16/2023 Comments No Sex and Gender Information Value Date Recorded Sex Assigned at Not on file Legal Sex Female 11:42 PM AUDIT PARTNER Gender Identity Female 05/18/2022 8:41 AM AUDIT PARTNER Sexual Orientation Straight 05/18/2022 8: 41 AM AUDIT PARTNER Last Filed Vital Signs Vital Sign Reading Time Taken Comments Blood Pressure 108/60 11/21/2023 2:59 PM CDT Pulse 60 11/21/2023 2:59 PM CDT Temperature 36.3 ??C (97.4 ??F) 06/06/2023 12:[address] Respiratory Rate 18 11/21/2023 2:59 PM CDT Oxygen Saturation 98% 11/21/2023 2:59 PM CDT Inhaled Oxygen Concentration - - Weight 90.3 kg (199 lb) 11/21/2023 2:59 PM CDT Height 170.2 cm (5' 7 ) 11/21/2023 2:59 PM CDT Body Mass Index 31.17 11/21/2023 2:59 PM CDT Plan of Treatment Not on file Medical Devices Implanted Type Area Coater Hand Device Identifier Shelf Expiration Date Model / Serial / Lot TipTap Angio-Seal Vip 6fr Closere Device [id number] - [id number] Implanted:Qty: 1 on 03/18/2023 by Amparo Hinds MD at [facility] [employer] 08/10/2023 [id number] / / [id number] Procedures Procedure Name Priority Date/Time Associated Diagnosis Comments HEPATITIS C ANTIBODY Routine 03/30/2021 2:20 PM CDT Unspecified abnormal finding in specimens from other organs, systems and tissues Arthralgia, unspecified joint from Last 3 Months or Most Recently Relevant to Health Maintenance Results * Hepatitis C antibody (03/30/2021 2:20 PM CDT) Hep C Ab Nonreactive Nonreactive VEL [facility]OSS Comment:Antibodies to HCV no t detected. Does NOT exclude the possibility of recent exposure to HCV. Blood 03/30/2021 2:20 PM CDT 03/30/2021 6:12 PM CDT us Kala Garrison NP LAB MICROBIOLOGY - [facility] L ORDERABLES Edited Result - Final [facility] [place] [address] from Last 3 Months or Most Recently Relevant to Health Maintenance Insurance MEDICARE A[employer] SENIOR SUPPLEMENT MEDICARE AET[employer] SENIOR SUPPLEMENT Advance Directives For more information, please contact: [phone] * Full Code (Latest Code Status on File) Date Activated Date Inactivated Comments 05/15/2023 3:30 PM 05/19/2023 9:11 PM * Full Code Date Activated Date Inactivated Comments 03/18/2023 11:16 AM 03/18/2023 5:54 PM * Full Code Date Activated Date Inactivated Comments 09/12/2017 1:59 AM 09/13/2017 5:14 PM Care Teams Mixing Tumbler Operator Relationship Specialty Start Date End Date Waqas Araujo MD PCP - General Family Practice 7/26/23 Jace Cheek MD Consulting Physician Neurosurgery 05/30/23
--- OUTSIDE RECORDS SUMMARY | 2024-08-09 14:56 | XMS_ITS | Clinical Summary ---
Author Organization [facility] Address [address] [place] [address] Care Team Providers Care Senior Bioinformatics Scientist Name Role Phone Remington Walter MD Unavailable [phone] Reji Lucero DO Primary Care Provider [phone] Source Comments [facility],non-owned Affiliates and Associated Physician Practices is amultiple site organization consisting of ambulatory clinics and hospital sitesin [place], [place], [place] and [place]. This disclosure is being madepursuant to the Care Everywhere program and may not contain all information available regarding this patient. Last updated 18.[facility] Allergies No known active allergies Medications * Be aware that medications may not be up to date on this document. Alwaysverify current medications with the patient. Medication Sig Dispensed Refills Start Date End Date Status Docusate Sodium (COLACE PO) Take 100 mg by mouth once daily. Active Escitalopram Oxalate (LEXAPRO PO) Take by mouth once daily. Active amlodipine-benazepril (LOTREL) 5-20 MG capsule Take 1 Cap by mouth 2 times daily. Active diphenhydrAMINE (BENADRYL) 25 MG tablet Take 50 mg by mouth at bedtime. Active HYDROCHLOROTHIAZIDE PO Ac tive Topiramate (TOPAMAX PO) A ctive Active Problems Problem Noted Date Diagnosed Date Knee joint replacement by other means 08/06/2014 Osteoarthrosis involving lower leg 05/13/2014 Overview (10/04/2015): 2015 IMO Updt Social History Tobacco Use Types Packs/Day Years Used Date Smoking Tobacco: Former Cigarettes 2 10 0 08/05/1987 - 08/05/1997 Smokeless Tobacco: Never Alcohol Use Standard Drinks/Week Comments No 0 (1 standard drink = 0.6 oz pur e alcohol) Sex and Gender Information Value Date Recorded Sex Assigned at Not on file Gender Identity Not on file Sexual Orientation Not on file Last Filed Vital Signs Vital Sign Reading Time Taken Comments Blood Pressure 122/74 08/12/2018 11:56 AM COPYIST Pulse 60 08/12/2018 11:56 AM COPYIST Temperature 36.7 ??C (98 ??F) 08/12/2018 11:56 AM COPYIST Respiratory Rate 17 08/12/2018 11:56 AM COPYIST Oxygen Saturation 97% 08/12/2018 11:56 AM COPYIST Inhaled Oxygen Concentration - - Weight 95.3 kg (210 lb) 08/12/2018 11:56 AM COPYIST Height 170.2 cm (5' 7 ) 08/12/2018 11:56 AM COPYIST Body Mass Index 32.89 08/12/2018 11:56 AM COPYIST Plan of Treatment Health Maintenance Due Date Last Done Comments BONE DENSITY TESTING 1954 COLOGUARD (AGES 45-75) - COL ON CA SCREENING 1954 COLON MONITORING 1954 COLONOSCOPY - COLON CA SCREENING 1954 CT COLONOGRAPHY - COLON CA SCREENING 1954 Colorectal Cancer Screening 1954 FIT - COLON CA SCREENING 1954 FLEX SIG - COLON CA SCREENING 1954 LIPID TESTING 1954 MAMMOGRAM 1955 MEDICARE AWV ? 12 MONTHS 1954 HEPATITIS C SCREENING 08/03/1972 DTAP/TDAP/TD VACCINES (1 - Tdap) 1973 PNEUMOCOCCAL VACCINE 50+ (1 of 1 - PCV) 2004 ZOSTER VACCINE (1 of 2) 2004 SCREENING FOR DIABETES 08/12/2018 4, 06/05/2014 COVID-19 VACCINE (1 - 2023-2 5 season) 2024 INFLUENZA VACCINE (#1) 2024 DEPRESSION SCREENING 07/11/2024 Respiratory Syncytial Virus (RSV) Vaccine Pt: or over 60 yrs (1 - 1-dose 75+ series) 2029 HEPATITIS B VACCINE Aged Out No longe r eligible based on patient's age to complete this topic HIB VACCINE Aged Out No longer eligi ble based on patient's age to complete this topic HPV VACCINE Aged Out No longer eligi ble based on patient's age to complete this topic MENINGOCOCCAL (Group B) VACCINE Aged Out No longer eligible b ased on patient's age to complete this topic MENINGOCOCCAL VACCINE Aged Out No francine berry eligible based on patient's age to complete this topic Medical Devices Implanted Type Area Plastics Repairer Device Identifier Shelf Expiration Date Model / Serial / Lot All Bone Chalmers Hv Implanted:Qty: 1 on 06/24/2014 by Remington Walter MD at [facility] Right: [employer] 02/07/2016 [id number] / / [id number] Tibial I Beam Fix Bar 71mm Implanted:Qty: 1 on 06/24/2014 by Remington Walter MD at [facility] Right: [employer] 05/09/2024 [id number] / / [id number] Kn Ins Vangurd Fem Cocr R-Intlok 62.5mm Implanted:Qty: 1 on 06/24/2014 by Remington Walter MD at [facility] Right: [employer] 11/07/2022 [id number] / / [id number] Butn Pat Arcom Wire Polyeth Xsm 28 X 8 Implanted:Qty: 1 on 06/24/2014 by Remington Walter MD at [facility] Right: [employer] 04/09/2019 [id number] / / [id number] Brdg Tib Magalys Stbl 12mm X 71mm Implanted:Qty: 1 on 06/24/2014 by Remington Walter MD at [facility] Right: [employer] 05/09/2019 [id number] / / [id number] Procedures Procedure Name Priority Date/Time Associated Diagnosis Comments BASIC METABOLIC PANEL (CALCIUM TOTAL) AM Draw 06/25/2014 4:20 AM COPYIST from Last 3 Months or Most Recently Relevant to Health Maintenance Results * (ABNORMAL) BASIC METABOLIC PANEL (CALCIUM TOTAL) (06/25/2014 4:20 AM COPYIST) Glucose 99 74 - 106 mg/dL 06/25/2014 4:50 AM [facility] Sodium 136 136 - 145 mmol/L 06/25/2014 4:50 AM [facility] Potassium 4.0 3.5 - 5.1 mmol/L 06/25/2014 4:50 AM [facility] Chloride 104 98 - 107 mmol/L 06/25/2014 4:50 AM [facility] CO2 27 22 - 31 mmol/L 06/25/2014 4:50 AM [facility] Calcium 8.4(L) 8.5 - 10.1 mg/dL 06/25/2014 4:50 AM [facility] Anion Gap 5 5 - 15 mmol/L 06/25/2014 4:50 AM [facility] BUN 14 7 - 21 mg/dL 06/25/2014 4:50 AM [facility] Creatinine 1.07 0.50 - 1.30 mg/dL 06/25/2014 4:50 AM [facility] eGFR by MDRD 52(L) >60 mL/min/1.7 3m2 06/25/2014 4:50 AM [facility] eGFR by MDRD >60 >60 mL/min/1.7 3m2 06/25/2014 4:50 AM [facility] Blood BLOOD SPECIMEN / Unknown 06/25/2014 4:20 AM COPYIST 06/25/2014 4:28 AM COPYIST Octavia Dover MD LAB - CHEMISTRY ORD ERABLES [facility] [address] [place] [address] from Last 3 Months or Most Recently Relevant to Health Maintenance Advance Directives * Full Code (Latest Code Status on File) Date Activated Date Inactivated Comments 06/24/2014 11:53 AM 06/26/2014 7:42 PM Care Teams Senior Bioinformatics Scientist Relationship Specialty Start Date End Date Reji Lucero DO [address] [place] [address] PCP - General 07/06/22 [place] [address] [place] [id number] Orthopedic Surgery 05/13/14
--- OUTSIDE RECORDS SUMMARY | 2024-08-09 14:56 | XMS_ITS | Clinical Summary ---
Author Organization [facility] Address [address] [place] [address] Care Team Providers Care Winery Worker Name Role Phone Waqas Araujo MD Primary Care Provider [phone] Jace Cheek MD Unavailable [phone] Allergies No known active allergies Medications escitalopram [...] 04/30/2015 Influenza, Unspecified 04/24/2014,05/09/2013 Pneumococcal, Unspecified 02/23/2013 Surgical History Surgery Date Site/Laterality Comments JOINT REPLACEMENT HYSTERECTOMY STOMACH SURGERY Gastric Surgery For Morbid Obesity - gastric sleeve 2013 (Added by TW Conv) Medical History Medical History Date Comments Hypertension Hyperlipidemia Essential tremor High blood pressure Family History Medical History Relation Name Comments Stroke Father Family history of stroke - (Added by TW Conv) Stroke Mother Family history of stroke - (Added by TW Conv) Relation Name Status Comments Father Mother Social History Tobacco Use Types Packs/Day Years Used Date Smoking Tobacco: Former Cigarettes 2 26 1 972 - 1997 Smokeless Tobacco: Never Tobacco Cessation:Counseling Given: Not Answered Alcohol Use Standard Drinks/Week Comments No 0 (1 standard drink = 0.6 oz pur e alcohol) [facility] Utilities Answer Date Recorded In the past 12 months has th e [employer], gas, oil, or water [employer] threatened to shut off services in your [...] week 05/16/2023 How often do you attend [facility] or shinto services? 1 to 4 times per year 05/16/2023 Do you belong to any clubs o r organizations such as worship groups, unions, fraternal or athletic groups, or [...] place to sleep or slept in a fdc (including now)? No 05/16/2023 Personal Safety Answer Date Recorded Have you ever been in or are you currently in a harmful physical or emotional relationship or is someone making you feel afraid or unsafe? Denies 05/16/2023 Comments No Sex and Gender Information Value Date Recorded Sex Assigned at Not on file Legal Sex Female 11:42 PM GENDER STUDIES PROFESSOR Gender Identity Female 05/18/2022 8:41 AM GENDER STUDIES PROFESSOR Sexual Orientation Straight 05/18/2022 8: 41 AM GENDER STUDIES PROFESSOR Obstetrics History Last Filed Vital Signs Vital Sign Reading [...] 11/21/2023 2:59 PM CDT Plan of Treatment Health Maintenance Due Date Last Done Comments Breast Cancer Screening-Mammogram 1954 Colon Cancer Screening-Colonoscopy 1954 Depression Screening 1954 Osteoporosis Screening-Bone Density Scan 1954 DTaP/Tdap/Td Vaccine (1 - Tdap) 1965 Hepatitis B Screening 1972 Zoster Vaccine (1 of 2) 2004 Pneumococcal vaccine 65+ (1 of 1 - PCV) 2019 02/23/2013 Well Visit 65+ 2019 Covid-19 Vaccine (3 - 2023-2 5 season) 2024 08/29/2020, 07/31/2020 Influenza Vaccine (#1) 2024 8, 04/30/2015, 04/24/2014, Additional history exists Fall Risk Assessment 05/19/2024 05/19/2023 Hepatitis C Screening Completed 03/30/2021 Medical Devices Implanted Type Area Trouble Dispatcher Device Identifier Shelf Expiration Date Model / Serial / Lot [employer] Angio-Seal Vip 6fr Closere Device [id number] - [id number] Implanted:Qty: 1 on 03/18/2023 by Amparo Hinds MD at [facility] [employer] 08/10/2023 [id number] / / [id number] Procedures Procedure Name Priority Date/Time Associated Diagnosis [...] us Kala Garrison NP LAB MICROBIOLOGY - GENERA L ORDERABLES Edited Result - Final [facility] [place] [address] from Last 3 Months or Most Recently Relevant to Health Maintenance Insurance MEDICARE [facility] SENIOR SUPPLEMENT MEDICARE AETNA SENIOR SUPPLEMENT Advance Directives For more information, please contact: [phone] * Full Code (Latest Code Status on File) Date Activated Date Inactivated Comments 05/15/2023 3:30 PM 05/19/2023 9:11 PM * Full Code Date Activated Date Inactivated Comments 03/18/2023 11:16 AM 03/18/2023 5:54 PM * Full Code Date Activated Date Inactivated Comments 09/12/2017 1:59 AM 09/13/2017 5:14 PM Care Teams Winery Worker Relationship Specialty Start Date End Date Waqas Araujo MD PCP - General Family Practice 02/02/23 Jace Cheek MD Consulting Physician Neurosurgery 05/30/23
--- OUTSIDE RECORDS SUMMARY | 2024-08-09 14:56 | XMS_ITS | Encounter Summary ---
Author Organization [facility] Facility Care Team Providers Care Print Producer Name Role Phone Denys Smith MD Primary Care Provider [phone] Reji Lucero DO Primary Care Provider [phone] Waqas Araujo MD Primary Care Provider [phone] Jace Cheek MD Unavailable [phone] Encounter Details Date Type Department Care Team (Latest Contact Info) Description 07/12/2018 Orders Only [facility] CLINCONV ProviderLencho MD [address] [place] [id number] Social History Tobacco Use Types Packs/Day Years Used Date Smoking Tobacco: Former Smokeless Tobacco: Never Alcohol Use Standard Drinks/Week Comments No 0 (1 standard drink = 0.6 oz pur e alcohol) Comments No Sex and Gender Information Value Date Recorded Sex Assigned at Not on file Legal Sex Female 11:42 PM WARNING COORDINATION METEOROLOGIST Gender Identity Female 05/18/2022 8:41 AM WARNING COORDINATION METEOROLOGIST Sexual Orientation Straight 05/18/2022 8: 41 AM WARNING COORDINATION METEOROLOGIST documented as of this encounter Plan of Treatment Not on file documented as of this encounter Procedures Procedure Name Priority Date/Time Associated Diagnosis Comments CARDIOLOGY REPORT 07/13/2018 12: 00 AM WARNING COORDINATION METEOROLOGIST documented in this encounter Results * CARDIOLOGY REPORT (07/13/2018 12:00 AM WARNING COORDINATION METEOROLOGIST) Anatomical Region Laterality Modality Other Narrative 07/13/2018 12:00 AM WARNING COORDINATION METEOROLOGIST Ordered by an unspecified provider. us Historical Provider [facility] EDEN FOWLER Final Result documented in this encounter Visit Diagnoses Not on filedocumented in this encounter Additional Health Concerns Infection Onset Date Last Indicated Resolved Time COVID: Suspected 01/21/2023 01/21/2023 01/21/2023 2:44 PM CDT COVID: Suspected 01/21/2023 01/21/2023 01/21/2023 8:57 PM CDT documented as of this encounter Care Teams Print Producer Relationship Specialty Start Date End Date Denys Smith MD [address] [place] [address] PCP - General 09/14/17 03/02/22 Reji Lucero DO [address] [place] [address] PCP - General Internal Medicine 03/03/22 02/01/23 Waqas Araujo MD [address] [place] [address] PCP - General Family Practice 02/02/23 Jace Cheek MD [address] [place] [address] Consulting Physician Neurosurgery 05/30/23 documented as of this encounter
--- OUTSIDE RECORDS SUMMARY | 2024-08-09 14:56 | XMS_ITS | Patient Health Summary ---
Author Organization [facility] Address [address] [place] [address] Care Team Providers Care Supervisor Cereal Name Role Phone Remington Walter MD Unavailable [phone] Reji Lucero DO Primary Care Provider [phone] Note from [facility],non-owned Affiliates and Associated Physician Practices is amultiple site organization consisting of ambulatory clinics and hospital sitesin [place], [place], [place] and [place]. This disclosure is being madepursuant to the Care Everywhere program and may not contain all information available regarding this patient. Last updated 18.[facility] Allergies No known active allergies Medications * Be aware that medications may not be up to date on this document. Alwaysverify current medications with the patient. * Docusate Sodium (COLACE PO) Take 100 mg by mouth once daily. * Escitalopram Oxalate (LEXAPRO PO) Take by mouth once daily. * amlodipine-benazepril (LOTREL) 5-20 MG capsule Take 1 Cap by mouth 2 times daily. * diphenhydrAMINE (BENADRYL) 25 MG tablet Take 50 mg by mouth at bedtime. * HYDROCHLOROTHIAZIDE PO * Topiramate (TOPAMAX PO) Active Problems Problem Noted Date Diagnosed Date Knee joint replacement by other means 08/06/2014 Osteoarthrosis involving lower leg 05/13/2014 Social History Tobacco Use Types Packs/Day Years [...] Comments Blood Pressure 122/74 08/12/2018 11:56 AM SHALLOT PACKER Pulse 60 08/12/2018 11:56 AM SHALLOT PACKER Temperature 36.7 ??C (98 ??F) 08/12/2018 11:56 AM SHALLOT PACKER Respiratory Rate 17 08/12/2018 11:56 AM SHALLOT PACKER Oxygen Saturation 97% 08/12/2018 11:56 AM SHALLOT PACKER Inhaled Oxygen Concentration - - Weight 95.3 kg (210 lb) 08/12/2018 11:56 AM SHALLOT PACKER Height 170.2 cm (5' 7 ) 08/12/2018 11:56 AM SHALLOT PACKER Body Mass Index 32.89 08/12/2018 11:56 AM SHALLOT PACKER Medical Devices Implanted Type Area Personal Lines Advisor Device Identifier Shelf Expiration Date Model / Serial / Lot All Bone [place] Hv Implanted:Qty: 1 on 06/24/2014 by Remington Walter MD at [facility] Right: Knee [employer] 02/07/2016 [id number] / / [id number] Tibial I Beam Fix Bar 71mm Implanted:Qty: 1 on 06/24/2014 by Remington Walter MD at [facility] Right: Knee [employer] 05/09/2024 [id number] / / [id number] Kn Ins [place] Fem Cocr R-Intlok 62.5mm Implanted:Qty: 1 on 06/24/2014 by Remington Walter MD at [facility] Right: Knee [employer] 11/07/2022 [id number] / / [id number] Butn Pat Arcom Wire Polyeth Xsm 28 X 8 Implanted:Qty: 1 on 06/24/2014 by Remington Walter MD at [facility] Right: Knee [employer] 04/09/2019 [id number] / / [id number] Brdg Tib Magalys Stbl 12mm X 71mm Implanted:Qty: 1 on 06/24/2014 by Remington Walter MD at [facility] Right: Knee [employer] 05/09/2019 [id number] / / [id number] Procedures * XR KNEE RIGHT 3VW(Performed 08/06/2014) Performed for Osteoarthrosis, unspecified whether generalized or localized, lower leg * HGB HCT PANEL(Performed 06/26/2014) * BASIC METABOLIC PANEL (CALCIUM TOTAL)(Performed 06/25/2014) * CBC W AUTO DIFFERENTIAL(Performed 06/25/2014) * ARTHROPLASTY TOTAL KNEE(Performed 06/24/2014) Performed for Osteoarthrosis, unspecified whether generalized or localized, lower leg * NEURAXIAL BLOCK(Performed 06/24/2014) * CBC W AUTO DIFFERENTIAL(Performed 06/05/2014) Performed for Preop examination * COMPREHENSIVE METABOLIC PANEL(Performed 06/05/2014) Performed for Preop examination * CULTURE MSSA/MRSA(Performed 06/05/2014) Performed for Preop examination * EKG 12-LEAD(Performed 06/05/2014) Performed for Preop examination * XR KNEE RIGHT 3VW(Performed 05/13/2014) Performed for Pain in joint, lower leg, right Results * XR KNEE 3 VW RIGHT (08/06/2014 1:03 PM SHALLOT PACKER) Only the most recent of2 resultswithin the time period is included. Anatomical Region Laterality Modality Lower Extremity Radiographic Belinda ging Narrative 08/06/2014 1:48 PM SHALLOT PACKER Violette Rose, RT(R) ? 08/06/2014 ??1:48 PM SEE PROGRESS NOTES FOR FINAL RESULT Remington Walter MD DIAGNOSTIC IMAGING O RDERABLES * (ABNORMAL) HGB HCT PANEL (06/26/2014 3:17 AM SHALLOT PACKER) Hemoglobin 10.1(L) 12.0 - 15.6 gm/dL 06/26/2014 4:43 AM SHALLOT PACKER [facility] Hematocrit 30.1(L) 35.9 - 45.5 % 06/26/2014 4:43 AM SHALLOT PACKER [facility] Blood BLOOD SPECIMEN / Unknown 06/26/2014 3:17 AM SHALLOT PACKER 06/26/2014 4:33 AM SHALLOT PACKER Remington Walter MD LAB - HEMATOLOGY ORD ERABLES [facility] [address] [place] [address] * (ABNORMAL) CBC W AUTO DIFFERENTIAL (06/25/2014 4:20 AM SHALLOT PACKER) Only the most recent of2 resultswithin the time period is included. WBC 9.4 4.4 - 10.7 x10^9/L 06/25/2014 4:40 AM [facility] RBC 4.00 3.80 - 5.20 x10^12/L 06/25/2014 4:40 AM [facility] Hemoglobin 11.6(L) 12.0 - 15.6 gm/dL 06/25/2014 4:40 AM [facility] Hematocrit 33.8(L) 35.9 - 45.5 % 06/25/2014 4:40 AM [facility] MCV 84.5 80.7 - 98.3 fl 06/25/2014 4:40 AM [facility] MCH 29.0 26.7 - 34.0 pg 06/25/2014 4:40 AM [facility] MCHC 34.3 30.8 - 35.9 gm/dL 06/25/2014 4:40 AM [facility] Platelet Count 144(L) 153 - 416 x10^9/L 06/25/2014 4:40 AM [facility] RDW-CV 13.3 12.1 - 14.9 % 06/25/2014 4:40 AM [facility] MPV 12.7 9.4 - 12.9 fl 06/25/2014 4:40 AM [facility] Neutrophils % 85.2(H) 44.0 - 73.0 % 06/25/2014 4:40 AM [facility] Lymphocytes % 8.9(L) 20.0 - 43.0 % 06/25/2014 4:40 AM [facility] Monocytes % 5.5 5.0 - 13.0 % 06/25/2014 4:40 AM [facility] Eosinophils % 0.0 0.0 - 6.0 % 06/25/2014 4:40 AM [facility] Basophils % 0.1 0.0 - 2.0 % 06/25/2014 4:40 AM [facility] Immature Granulocytes 0.3 0 - 1 % 06/25/2014 4:40 AM [facility] Neutrophil Absolute 8.03(H) 2.01 - 7.14 x10^9/L 06/25/2014 4:40 AM [facility] Lymphocytes Absolute 0.84(L) 1.07 - 3.94 x10^9/L 06/25/2014 4:40 AM [facility] Monocytes Absolute 0.52 0.26 - 1.07 x10^9/L 06/25/2014 4:40 AM [facility] Eosinophils Absolute 0.00 0 - 0.47 x10^9/L 06/25/2014 4:40 AM [facility] Basophils Absolute 0.01 0 - 0.08 x10^9/L 06/25/2014 4:40 AM [facility] Immature Granulocytes Absolute 0.03 0.00 - 0.06 x10^9/L 06/25/2014 4:40 AM [facility] Blood BLOOD SPECIMEN / Unknown 06/25/2014 4:20 AM SHALLOT PACKER 06/25/2014 4:28 AM [facility] Octavia Dover MD LAB - HEMATOLOGY OR DERABLES Performing Organization Address City/State/[facility] Co de Phone Number [facility] [address] [place] [address] * (ABNORMAL) BASIC METABOLIC PANEL (CALCIUM TOTAL) (06/25/2014 4:20 AM SHALLOT PACKER) [facility] Glucose 99 74 - 106 mg/dL 06/25/2014 4:50 AM [facility] Sodium 136 136 - 145 mmol/L 06/25/2014 4:50 AM [facility] Potassium 4.0 3.5 - 5.1 mmol/L 06/25/2014 4:50 AM [facility] Chloride 104 98 - 107 mmol/L 06/25/2014 4:50 AM [facility] CO2 27 22 - 31 mmol/L 06/25/2014 4:50 AM [facility] Calcium 8.4(L) 8.5 - 10.1 mg/dL 06/25/2014 4:50 AM [facility] Anion Gap 5 5 - 15 mmol/L 06/25/2014 4:50 AM [facility] BUN 14 7 - 21 mg/dL 06/25/2014 4:50 AM [facility] Creatinine 1.07 0.50 - 1.30 mg/dL 06/25/2014 4:50 AM [facility] eGFR by MDRD 52(L) >60 mL/min/1.7 3m2 06/25/2014 4:50 AM [facility] eGFR by MDRD >60 >60 mL/min/1.7 3m2 06/25/2014 4:50 AM [facility] Blood BLOOD SPECIMEN / Unknown 06/25/2014 4:20 AM SHALLOT PACKER 06/25/2014 4:28 AM SHALLOT PACKER Octavia Dover MD LAB - CHEMISTRY ORD ERABLES [facility] [address] [place] [address] * NEURAXIAL BLOCK (06/24/2014 8:30 AM SHALLOT PACKER) Narrative Aguila Lucero APRN-PADMA - 06/24/2014 8:30 AM [facility] Aguila Lucero CRNA ? 06/24/2014 ??8:30 AM NEURAXIAL BLOCK Patient Location: ??OR Pre Procedure Indication: ??surgical anesthesia and post-operative analgesia Anticoagulation /Antithrombosis Status Confirmed: Yes Preanesthetic Checklist: ??patient identified, IV checked, site marked, risks and benefits discussed, surgical consent verified, monitors and equipment checked, pre-op evaluation done, timeout performed, informed consent obtained and questions answered / anesthesia plan accepted Monitors: ??BP, Pulse Ox, EKG and ETCO2 Patient Condition: ??sedated, meaningful contact maintained Patient Position: ??sitting Procedure Block Performed: ??spinal Prep: ??Betadine Sterile Field: ??sterile gloves, sterile field established, cap/hat and mask Approach: ??midline Skin Numbed with: ??lidocaine 1% Spinal Needle Type: ??pencil-point Needle Gauge: ??25 G Placement Site: ??L3-4 Number of Attempts: ??1 CSF: ??free flow, aspiration before injection and aspiration during injection Position Post Procedure: ??supine Block Start Time: ??06/24/2014 8:15 AM Block End Time: ??06/24/2014 8:16 AM Block Performed by: ??CHRISTOPHER Leonardo Remington Walter MD GENERAL ANESTHESIA O DEONNA * CULTURE MSSA/MRSA (06/05/2014 9:17 AM SHALLOT PACKER) Culture Negative for MRSA/MSSA NATY 06/06/2014 3:07 PM SHALLOT PACKER [facility] MICROBIOLOGY Microbiology SPECIMEN FROM NASAL FOSSAE / Unknown 06/05/2014 9:17 AM SHALLOT PACKER 06/05/2014 11:17 AM SHALLOT PACKER Remington Walter MD LAB - MICROBIOLOGY O DEONNA [facility] MICROBIOLOGY [address] [place], [place] [address], [facility] * (ABNORMAL) COMPREHENSIVE METABOLIC PANEL (06/05/2014 9:17 AM SHALLOT PACKER) Glucose 81 74 - 106 mg/dL 06/05/2014 11:46 AM [facility] Sodium 141 136 - 145 mmol/L 06/05/2014 11:46 AM [facility] Potassium 3.8 3.5 - 5.1 mmol/L 06/05/2014 11:46 AM [facility] Chloride 104 98 - 107 mmol/L 06/05/2014 11:46 AM [facility] CO2 31 22 - 31 mmol/L 06/05/2014 11:46 AM [facility] Calcium 9.5 8.5 - 10.1 mg/dL 06/05/2014 11:46 AM [facility] Anion Gap 6 5 - 15 mmol/L 06/05/2014 11:46 AM [facility] BUN 8 7 - 21 mg/dL 06/05/2014 11:46 AM [facility] Creatinine 0.77 0.50 - 1.30 mg/dL 06/05/2014 11:46 AM [facility] eGFR by MDRD >60 >60 mL/min/1.7 3m2 06/05/2014 11:46 AM [facility] eGFR by MDRD >60 >60 mL/min/1.7 3m2 06/05/2014 11:46 AM [facility] Alkaline Phosphatase 87 38 - 126 U/L 06/05/2014 11:46 AM SHALLOT PACKER [facility] ALT 34 12 - 78 U/L 06/05/2014 11:46 AM SHALLOT PACKER [facility] AST 25 5 - 40 U/L 06/05/2014 11:46 AM SHALLOT PACKER [facility] Protein Total 7.5 6.4 - 8.2 gm/dL 06/05/2014 11:46 AM SHALLOT PACKER [facility] Albumin 3.9 3.4 - 5.0 gm/dL 06/05/2014 11:46 AM SHALLOT PACKER [facility] Bilirubin Total 1.7(H) 0.2 - 1.0 mg/dL 06/05/2014 11:46 AM SHALLOT PACKER [facility] Blood BLOOD SPECIMEN / Unknown 06/05/2014 9:17 AM SHALLOT PACKER 06/05/2014 11:18 AM SHALLOT PACKER Remington Walter MD LAB - CHEMISTRY [facility] Performing Organization Address City/[facility]/ZIP Co de Phone Number [facility] [address] [place] [id number] * EKG 12-LEAD (06/05/2014 9:12 AM SHALLOT PACKER) Ventricular Rate 49 BPM [facility] Atrial Rate 49 BPM [facility] P-R Interval 162 ms [facility] QRS Duration ms 82 ms [facility] Q-T Interval ms 484 ms [facility] QTC Calculation (Bezet) 437 ms [facility] Calculated P [place] 11 degrees [facility] Calculated R [place] 27 degrees [facility] Calculated T [place] 25 degrees [facility] Interpretation EKG Marked sinus bradycardia Abnormal ECG No previous ECGs available Confirmed by GUILLERMO LA, SUKHDEEP ([id number]) on 06/07/2014 8:32:00 AM [facility] 06/05/2014 9:12 AM SHALLOT PACKER 06/07/2014 8:32 AM SHALLOT PACKER Remington Walter MD ECG ORDERABLES [facility] Care Teams Supervisor Cereal Relationship Specialty Start Date End Date Reji Lucero DO [address] [place], [place] [id number] PCP - General 07/06/22 [place] [address] [address] [address] Orthopedic Surgery 05/13/14
--- OUTSIDE RECORDS SUMMARY | 2024-08-09 14:56 | XMS_ITS | Referral Summary ---
Author Organization [facility] Address [address] [place] [address] Care Team Providers Care Shrub Planter Name Role Phone Remington Walter MD Unavailable [phone] Reji Lucero DO Primary Care Provider [phone] Source Comments [facility],non-owned Affiliates and Associated Physician Practices is amultiple site organization consisting of ambulatory clinics and hospital sitesin [place], [place], [place] and [place]. This disclosure is being madepursuant to the Care Everywhere program and may not contain all information available regarding this patient. Last updated 18.[facility] Allergies No known active allergies Medications * [...] Comments Blood Pressure 122/74 08/12/2018 11:56 AM TRAFFIC ADMINISTRATOR Pulse 60 08/12/2018 11:56 AM TRAFFIC ADMINISTRATOR Temperature 36.7 ??C (98 ??F) 08/12/2018 11:56 AM TRAFFIC ADMINISTRATOR Respiratory Rate 17 08/12/2018 11:56 AM TRAFFIC ADMINISTRATOR Oxygen Saturation 97% 08/12/2018 11:56 AM TRAFFIC ADMINISTRATOR Inhaled Oxygen Concentration - - Weight 95.3 kg (210 lb) 08/12/2018 11:56 AM TRAFFIC ADMINISTRATOR Height 170.2 cm (5' 7 ) 08/12/2018 11:56 AM TRAFFIC ADMINISTRATOR Body Mass Index 32.89 08/12/2018 11:56 AM TRAFFIC ADMINISTRATOR Functional Status Functional Status Response Date of Assess ment Is person deaf or have serious hearing difficult y? No 06/24/2014 Is person blind or have serious difficulty seein g? No 06/24/2014 Does person have serious dif ficulty walking/climbing stairs? No 06/24/2014 Does person have difficulty dressing/bathing? No 06/24/2014 Does person have difficulty doing errands alone? No 06/24/2014 Cognitive Status Response Date of Assessm ent Does person have difficulty concentrating/remembering/making decisions? No 06/24/2014 Plan of Treatment Not on file Medical Devices Implanted Type Area Mixed Crop And Livestock Farmer Device Identifier Shelf Expiration Date Model / Serial / Lot All Bone [place] Hv Implanted:Qty: 1 on 06/24/2014 by Remington Walter MD at [facility] Right: Knee [employer] 02/07/2016 [id number] / / [id number] Ty Tibial I Beam Fix Bar 71mm Implanted:Qty: 1 on 06/24/2014 by Remington Walter MD at [facility] Right: Knee [employer] 05/09/2024 [id number] / / [id number] Kn Ins [place] Fem Cocr R-Intlok 62.5mm Implanted:Qty: 1 on 06/24/2014 by Remington Walter MD at [facility] Right: [employer]nee [employer] 11/07/2022 [id number] / / [id number] Walker Arcom Wire Polyeth Xsm 28 X 8 Implanted:Qty: 1 on 06/24/2014 by Remington Walter MD at [facility] Right: [employer]nee [employer] 04/09/2019 [id number] / / [id number] Brdg Tib Magalys Stbl 12mm X 71mm Implanted:Qty: 1 on 06/24/2014 by Remington Walter MD at [facility] Right: [employer]nee [employer] 05/09/2019 [id number] / / [id number] Procedures Procedure Name Priority Date/Time Associated Diagnosis Comments BASIC METABOLIC PANEL (CALCIUM TOTAL) AM Draw 06/25/2014 4:20 AM TRAFFIC ADMINISTRATOR from Last 3 Months or Most Recently Relevant to Health Maintenance Results * (ABNORMAL) BASIC METABOLIC PANEL (CALCIUM TOTAL) (06/25/2014 4:20 AM TRAFFIC ADMINISTRATOR) Glucose 99 74 - 106 mg/dL 06/25/2014 4:50 AM TRAFFIC ADMINISTRATOR [facility] Sodium 136 136 - 145 mmol/L 06/25/2014 4:50 AM TRAFFIC ADMINISTRATOR [facility] Potassium 4.0 3.5 - 5.1 mmol/L 06/25/2014 4:50 AM TRAFFIC ADMINISTRATOR [facility] Chloride 104 98 - 107 mmol/L 06/25/2014 4:50 AM TRAFFIC ADMINISTRATOR [facility] CO2 27 22 - 31 mmol/L 06/25/2014 4:50 AM TRAFFIC ADMINISTRATOR [facility] Calcium 8.4(L) 8.5 - 10.1 mg/dL 06/25/2014 4:50 AM TRAFFIC ADMINISTRATOR [facility] Anion Gap 5 5 - 15 mmol/L 06/25/2014 4:50 AM TRAFFIC ADMINISTRATOR [facility] BUN 14 7 - 21 mg/dL 06/25/2014 4:50 AM TRAFFIC ADMINISTRATOR [facility] Creatinine 1.07 0.50 - 1.30 mg/dL 06/25/2014 4:50 AM TRAFFIC ADMINISTRATOR [facility] eGFR by MDRD 52(L) >60 mL/min/1.7 3m2 06/25/2014 4:50 AM TRAFFIC ADMINISTRATOR [facility] eGFR by MDRD >60 >60 mL/min/1.7 3m2 06/25/2014 4:50 AM TRAFFIC ADMINISTRATOR [facility] Blood BLOOD SPECIMEN / Unknown 06/25/2014 4:20 AM TRAFFIC ADMINISTRATOR 06/25/2014 4:28 AM TRAFFIC ADMINISTRATOR Octavia Dover MD LAB - CHEMISTRY ORD ERABLES [facility] [address] [place] [address] from Last 3 Months or Most Recently Relevant to Health Maintenance Advance Directives * Full Code (Latest Code Status on File) Date Activated Date Inactivated Comments 06/24/2014 11:53 AM 06/26/2014 7:42 PM Care Teams Shrub Planter Relationship Specialty Start Date End Date Reji Lucero DO [address] [place] [address] PCP - General 07/06/22 [place] [address] [address] [address] Orthopedic Surgery 05/13/14
--- OUTSIDE RECORDS SUMMARY | 2024-08-09 14:56 | XMS_ITS | Continuity of Care Document ---
Author Organization [facility] Address [address] [place] [address] Phone Care Team Providers Care Program Review Director Name Role Phone Tito Jesus MD Unavailable Unavailable Allergies, Adverse Reactions, Alerts Substance Reaction Status Criticality No Known Allergies Active No Inform ation Procedures Procedure Date Rating Letter Global/Postop followup visit Supplemental Report X-ray exam ankle, minimum 3 views Global/Postop followup visit Supplemental Report ASO Speed Lacer Ankle Brace Global/Postop followup visit X-ray exam ankle, minimum 3 views Supplemental Report X-ray exam ankle, minimum 3 views X-ray exam knee, 3 views Stabilizer w/Air, Ankle Walker, Adult, folding adjust/fixed Office consultation, moderate 4 Disability Form Advance Directives Directive Yes / No Effective Date File Name No Information Encounters Encounter Description Practice Location Reason(s) For Visit Diagnoses Date Provider Providers Copied on Encounter [facility], [address], [place], [place], [id number], [place] tel:[phone] No Information 4 Edin Francis. [address] [facility], [place], [place], [id number] , [place]. tel:[phone] Rating Letter [facility], [address] [place] [address], [place], [place], [id number], [place] tel:[phone] [facility] No Information 0 4 Edin Francis. [address] [place] [address], [place] [address], [place], [place], [id number] , [place]. tel: [phone] [facility], [address] [place] [address], [place], [id number], [place] tel:[phone] [facility] FX FIBULA NOS-CLOSED Sep- 4 Edin Francis. [address] [place] [address], [id number] , [place]. tel: [phone] [facility], [address] [place] [address], [id number], [place] [phone] [facility] FX FIBULA NOS-CLOSED 4 Edin Francis. [address] [place] [address], [place], [place], [id number] , [place]. tel: [phone] [facility], [address] [place] [address], [id number], [place] tel:[phone] [facility] AFTRCE TRAUM FX BONE NECFX FIBULA NOS-CLOSED Feb-0 3- 4 Edin Francis. [address] [place] [address], [place], [place], [id number] , [place]. tel: [phone] Office consultation, moderate [facility], [address] [place] [address], [place], [place], [id number], [place] tel:[phone] [facility] [employer] [facility] JOINT PAIN-ANKLEJOI NT PAIN-L/LEGFX FIBULA NOS-CLOSEDCON TUSION OF KNEE Juan-2 0-201 4 Edin Francis. [address] [place] [address], [address], [id number] , [place]. tel: [phone] [facility], [address] [place] [address], [place], [id number], [place] tel:[phone] [facility] No Information 4 Edin Francis. [address] [facility], [place], [place], [id number] , [place]. tel: [phone] Family History Family Member Type Diagnosis Age At Onset No Information Payers Payer name Insurance type Covered green party ID Authoriza tion(s) No Information Social History Type Description Quantity Date Captured Comments Sex Female Smoking Status No Information Chief Complaint And Reason For Visit No Information Reason For Referral Reason For Referral No Information Plan Of Treatment Date Type Action Status Goal Tobacco cessation counseling completed Goal Tobacco cessation counseling completed Goal Tobacco cessation counseling completed Goal Tobacco cessation counseling completed Referral Ordered: X-ray exam ankle, minimum 3 views Right ordered Referral Ordered: X-ray exam knee, 3 views Left ordered History Of Present Illness Encounter Date Complaint History Of Prese nt Illness No Information Functional Status Date Functional Assessmen t No Information Instructions Date Instruction Additional Infor mation No Information Assessments Type Assessment Date No Information Patient Care Teams Name Effective Dates (start - stop) Status Members No Information
--- OUTSIDE RECORDS SUMMARY | 2024-08-09 14:56 | XMS_ITS | Encounter Summary ---
Author Organization [facility] Facility Care Team Providers Care Cytotechnologist/Histotechnologist Name Role Phone Denys Smith MD Primary Care Provider [phone] Reji Lucero DO Primary Care Provider Waqas Araujo MD Primary Care Provider [phone] Jace Cheek MD Unavailable [phone] Encounter Details Date Type Department Care Team (Latest Contact Info) Description 06/22/2018 Orders Only [facility]INCON[facility] ProviderLencho MD [address] [place] [address] Social History Tobacco Use Types Packs/Day Years Used Date Smoking Tobacco: Former Smokeless Tobacco: Never Alcohol Use Standard Drinks/Week Comments No 0 (1 standard drink = 0.6 oz pur e alcohol) Comments No Sex and Gender Information Value Date Recorded Sex Assigned at Not on file Legal Sex Female 11:42 PM COMMUNITY BOARD MEMBER Gender Identity Female 05/18/2022 8:41 AM COMMUNITY BOARD MEMBER Sexual Orientation Straight 05/18/2022 8: 41 AM COMMUNITY BOARD MEMBER documented as of this encounter Plan of Treatment Not on file documented as of this encounter Procedures Procedure Name Priority Date/Time Associated Diagnosis Comments CARDIOLOGY REPORT 06/22/2018 12: 00 AM COMMUNITY BOARD MEMBER documented in this encounter Results * CARDIOLOGY REPORT (06/22/2018 12:00 AM COMMUNITY BOARD MEMBER) Anatomical Region Laterality Modality Other Narrative 06/22/2018 12:00 AM COMMUNITY BOARD MEMBER Ordered by an unspecified provider. us Historical Provider [facility] EDEN FOWLER Final Result documented in this encounter Visit Diagnoses Not on filedocumented in this encounter Additional Health Concerns Infection Onset Date Last Indicated Resolved Time COVID: Suspected 01/21/2023 01/21/2023 01/21/2023 2:44 PM CDT COVID: Suspected 01/21/2023 01/21/2023 01/21/2023 8:57 PM CDT documented as of this encounter Care Teams Cytotechnologist/Histotechnologist Relationship Specialty Start Date End Date Denys Smith MD [address] [place] [address] PCP - General 09/14/17 03/02/22 Reji Lucero DO [address] [place] [address] PCP - General Internal Medicine 03/03/22 02/01/23 Waqas Araujo MD [address] [place] [address] PCP - General Family Practice 02/02/23 Jace Cheek MD [address] [place] [address] Consulting Physician Neurosurgery 05/30/23 documented as of this encounter
--- OUTSIDE RECORDS SUMMARY | 2024-08-09 14:56 | XMS_ITS | Encounter Summary ---
Author Organization [facility] Address [address] [place] [address] Phone Care Team Providers Care Lastex Thread Winder Name Role Phone Denys Smith MD Primary Care Provider [phone] Reji Lucero DO Primary Care Provider [phone] Waqas Araujo MD Primary Care Provider [phone] Jace Cheek MD Unavailable Encounter Details Date Type Department Care Team (Late st Contact Info) Description 08/29/2020 Orders Only [facility] Scanning, Provider Social History Tobacco Use Types Packs/Day Years Used Date Smoking Tobacco: Former Smokeless Tobacco: Never Alcohol Use Standard Drinks/Week Comments No 0 (1 standard drink = 0.6 oz pur e alcohol) Comments No Sex and Gender Information Value Date Recorded Sex Assigned at Not on file Legal Sex Female 11:42 PM FACTORY CLERK Gender Identity Female 05/18/2022 8:41 AM FACTORY CLERK Sexual Orientation Straight 05/18/2022 8: 41 AM FACTORY CLERK documented as of this encounter Plan of Treatment Not on file documented as of this encounter Procedures Procedure Name Priority Date/Time Associated Diagnosis Comments SCAN - LABS 08/29/2020 documented in this encounter Results * SCAN - LABS (08/29/2020) us Provider Scanning Final Result documented in this encounter Visit Diagnoses Not on filedocumented in this encounter Additional Health Concerns Infection Onset Date Last Indicated Resolved Time COVID: Suspected 01/21/2023 01/21/2023 01/21/2023 2:44 PM CDT COVID: Suspected 01/21/2023 01/21/2023 01/21/2023 8:57 PM CDT documented as of this encounter Care Teams Lastex Thread Winder Relationship Specialty Start Date End Date Denys Smith MD [address] [facility] [address] [place] [address] PCP - General 09/14/17 03/02/22 Reji Lucero DO [address] [facility] [address] [place] [address] PCP - General Internal Medicine 03/03/22 02/01/23 Waqas Araujo MD [address] [facility] [address] [place] [address] PCP - General Family Practice 02/02/23 Jace Cheek MD [address] [facility] [address] [place] [address] Consulting Physician Neurosurgery 05/30/23 documented as of this encounter
--- OUTSIDE RECORDS SUMMARY | 2024-08-09 14:56 | XMS_ITS | Encounter Summary ---
Author Organization [facility] Address [address] [place] [address] Care Team Providers Care Engineering Designer Name Role Phone Waqas Araujo MD Primary Care Provider [phone] Encounter Details Date Type Department Care Team ([facility] Contact Info) Description 2024 Orders Only [facility] Oncology and Hematology [facility] [address] [place] [address] John Aponte MD [facility] [employer] [address] [place] [address] Chronic anemia (Primary Dx) Social History Tobacco Use Types Packs/Day Years [...] Encounters Date Type Department Care Team (Late Contact Info) Description 08/10/2024 8:30 AM CHARGER TESTER Office Visit [facility] Oncology and Hematology [address] [place] [address] John Aponte MD [facility] [employer] [address] [place] [phone] Scheduled Orders Name Type Priority Associated Diagnoses Orde r Schedule CBC WITH DIFFERENTIAL Lab Routine Chronic anemia Expected: 2024, Expires: 2025 COMPREHENSIVE METABOLIC PANEL Lab Routine Chronic anemia Expected: 2024, Expires: 2025 IRON, TIBC, AND PERCENT SATURATION Lab Routine Chronic anemia Expected: 2024, Expires: 2025 FERRITIN Lab Routine Chronic anemia Expected: 2024, Expires: 2025 VITAMIN B12 AND FOLATE Lab Routine Chronic anemia Expected: 2024, Expires: 2025 documented as of this encounter Visit Diagnoses Diagnosis Chronic anemia- Primary Anemia, unspecified documented in this encounter Care Teams Engineering Designer Relationship Specialty Start Date End Date Waqas Araujo MD [address] [place] [address] PCP - General Family Practice 05/15/24 documented as of this encounter
--- OUTSIDE RECORDS SUMMARY | 2024-08-09 14:56 | XMS_ITS | Clinical Summary ---
Author Organization [facility] Address [address] [place] [address]. [place] [address] [place] [address] Care Team Providers Care Operating Room Coordinator Name Role Phone Tim Perera NP Primary Care Provider [phone] Allergies No known active allergies Medications escitalopram 10 MG tablet Take 10 mg by mouth daily. Active amlodipine-kassie zepril 5-20 MG capsule Take 1 capsule by mouth daily. Active atorvastatin 20 MG tablet Take 20 mg by mouth nightly at bedtime. Active hydrochlorothia zide 25 MG tablet Take 25 mg by mouth every morning. Active topiramate 50 MG Tab Take 50 mg by mouth daily. Active diphenhydrAMINE 50 MG Cap capsule Take 50 mg by mouth every 4 (four) hours as needed for Itching. Active docusate sodium 50 MG capsule Take by mouth 2 (two) times daily. Active aspirin 81 MG chewable tablet Chew 81 mg by mouth daily. Active ferrous sulfate, 65 mg elemental, 325 (65 FE) MG tablet Take 325 mg by mouth daily with breakfast. Active Family History Medical History Relation Comments Cancer Brother Relation Status Comments Brother Social History Tobacco Use Types Packs/Day Years Used Date Smoking Tobacco: Former Cigarettes Q uit: 1997 Smokeless Tobacco: Never Alcohol Use Standard Drinks/Week Comments Yes 0 (1 standard drink = 0.6 oz pur e alcohol) RARELY Comments No Sex and Gender Information Value Date Recorded Sex Assigned at Not on file Legal Sex Female 10:44 AM CDT Gender Identity Not on file Sexual Orientation Not on file Last Filed Vital Signs Vital Sign Reading Time Taken Comments Blood Pressure 118/65 05/15/2019 11:52 AM HEAD DOFFER Pulse 61 05/15/2019 11:52 AM HEAD DOFFER Temperature 36.6 ??C (97.8 ??F) 05/15/2019 11:[address] Respiratory Rate 18 05/15/2019 11:52 AM HEAD DOFFER Oxygen Saturation 95% 05/15/2019 11:52 AM HEAD DOFFER Inhaled Oxygen Concentration - - Weight 88.5 kg (195 lb) 05/10/2019 1:33 PM CDT Height 170.2 cm (5' 7 ) 05/10/2019 1:33 PM CDT Body Mass Index 30.54 05/10/2019 1:33 PM CDT Plan of Treatment Health Maintenance Due Date Last Done Comments Hepatitis C 1972 DTaP, Tdap and Td Vaccines ( 1 - Tdap) 1973 Mammogram Screening 1994 Zoster Vaccines (1 of 2) 2004 Annual Medicare Wellness Visit 2019 Dexa Scan (General) 2019 Pneumococcal Vaccine: 65+ Years (1 of 1 - PCV) 2019 COVID-19 Vaccine ( - 2023-2 5 season) 2024 Influenza Adult (#1) 2024 Colorectal Cancer Screening Colonoscopy (10 Years) 05/15/2029 05/15/2019, 05/15/2019 RSV Immunization or 60+ Years (1 - 1-dose 75+ series) 2029 Meningococcal B Vaccine Aged Out No l onger eligible based on patient's age to complete this topic Meningococcal Vaccine Aged Out No francine berry eligible based on patient's age to complete this topic RSV Immunizations Under 20 Months Aged Out No longer eligible b ased on patient's age to complete this topic Procedures Procedure Name Priority Date/Time Associated Diagnosis Comments COLONOSCOPY Routine 05/15/2019 8:59 AM HEAD DOFFER from Last 3 Months or Most Recently Relevant to Health Maintenance Insurance [facility] MEDICARE Care Teams Operating Room Coordinator Relationship Specialty Start Date End Date Tim Perera NP PCP - General NURSE PRACTITIONER 05/14/19
--- OUTSIDE RECORDS SUMMARY | 2024-08-09 14:56 | XMS_ITS | Encounter Summary ---
Author Organization [facility] Facility Care Team Providers Care Pocketed Spring Machine Operator Name Role Phone Unknown, Notinfile Primary Care Provider Unavail able Denys Smith MD Primary Care Provider [phone] Reji Lucero DO Primary Care Provider [phone] Waqas Araujo MD Primary Care Provider [phone] Jace Cheek MD Unavailable [phone] Encounter Details Date Type Department Care Team (Latest Contact Info) Description 09/12/2017 Orders Only [facility]IN[facility] ProviderLencho MD [address] [place] [address] Social History Tobacco Use Types Packs/Day Years Used Date Smoking Tobacco: Never Smokeless Tobacco: Never Alcohol Use Standard Drinks/Week Comments No 0 (1 standard drink = 0.6 oz pur e alcohol) Comments No Sex and Gender Information Value Date Recorded Sex Assigned at Not on file Legal Sex Female 11:42 PM ROLL OFF DRIVER Gender Identity Female 05/18/2022 8:41 AM ROLL OFF DRIVER Sexual Orientation Straight 05/18/2022 8: 41 AM ROLL OFF DRIVER documented as of this encounter Plan of Treatment Not on file documented as of this encounter Procedures Procedure Name Priority Date/Time Associated Diagnosis Comments CARDIOLOGY REPORT 08/10/2018 12: 00 AM ROLL OFF DRIVER documented in this encounter Results * CARDIOLOGY REPORT (08/10/2018 12:00 AM ROLL OFF DRIVER) Anatomical Region Laterality Modality Other Narrative 08/10/2018 12:00 AM ROLL OFF DRIVER Ordered by an unspecified provider. us Historical Provider [facility] EDEN FOWLER Final Result documented in this encounter Visit Diagnoses Not on filedocumented in this encounter Additional Health Concerns Infection Onset Date Last Indicated Resolved Time COVID: Suspected 01/21/2023 01/21/2023 01/21/2023 2:44 PM CDT COVID: Suspected 01/21/2023 01/21/2023 01/21/2023 8:57 PM CDT documented as of this encounter Care Teams Pocketed Spring Machine Operator Relationship Specialty Start Date End Date Unknown, Notinfile PCP - General 09/12/17 09/13/17 Denys Smith MD [address] [place] [address] PCP - General 09/14/17 03/02/22 Reji Lucero DO [address] [place] [address] [address] [place] [address] PCP - General Internal Medicine 03/03/22 02/01/23 Waqas Araujo MD [address] [place] [address] [address] [place] [address] PCP - General Family Practice 02/02/23 Jace Cheek MD [address] [place] [address] Consulting Physician Neurosurgery 05/30/23 documented as of this encounter
[2024-08-09 16:42] LABS: Iron 88 ug/dL (37-170)
[2024-08-09 16:47] LABS: Alanine Aminotransferase 29 U/L (6-35); Alkaline Phosphatase 68 U/L (38-126); Anion Gap 9 mmol/L (4-12); Aspartate Amino Transferase 39 U/L (14-36); Blood Urea Nitrogen 20 mg/dL (7-17); Calcium 9.2 mg/dL (8.4-10.2); Carbon Dioxide 26 mmol/L (22-30); Chloride 104 mmol/L (98-107); Estimated Glomerular Filt Rate 34; Glucose 88 mg/dL (65-110); Potassium 3.6 mmol/L (3.4-5.0); Sodium 139 mmol/L (137-145)
[2024-08-09 16:54] LABS: Percent Iron Saturation 34 % (20-50)
[2024-08-09 17:46] LABS: Folic Acid 7.2 ng/mL (2.76->20)
== END 2024-08-09 14:16 | disposition home or self-care (01) ==
LOC: ANHLAB 14:16
PROVIDERS: PCP Nurse Practitioner Family; Visit Provider Internal Medicine Hematology & Oncology
DX: D64.9 Anemia, unspecified (principal)
CPT/HCPCS: 36415; 80053; 82607; 82728; 82746; 83540; 83550; 85025

== ENCOUNTER 2025-03-29 10:11 | Outpatient (CLI) | payer MEDICARE, SELFPAY ==
--- NOTE | ~2025-03-29 | MM_ITS ---
EXAMINATION: MM screening antonina BI w spenser HISTORY: Screening TECHNIQUE: Craniocaudal and mediolateral oblique 3-D tomosynthesis images were obtained and synthetic 2-D images were generated. CAD analysis was submitted and interpreted. COMPARISON: Comparison to multiple prior studies sequentially, with oldest reviewed study dated , 04/14/2011 BREAST PARENCHYMAL COMPOSITION: There are scattered areas of fibroglandular density. FINDINGS: There is no evidence of suspicious mass, calcification, or architectural distortion to suggest malignancy in either breast. IMPRESSION: 1. No mammographic evidence of malignancy. 2. Recommend routine screening mammography in one year. BI-RADS Category 1: Negative Reviewed, dictated and finalized at location B.
--- OUTSIDE RECORDS SUMMARY | 2025-03-29 10:16 | XMS_ITS | Encounter Summary ---
Author Organization [facility] Facility Care Team Providers Care Kettle Tender Name Role Phone Denys Smith MD Primary Care Provider [phone] Reji Lucero DO Primary Care Provider [phone] Waqas Araujo MD Primary Care Provider [phone] Jace Cheek MD Unavailable [phone] Encounter Details Date Type Department Care Team (Latest Contact Info) Description 06/22/2018 Orders Only [facility]INCON[facility] ProviderLencho MD [address] [place] [address] Social History Tobacco Use Types Packs/Day Years Used Date Smoking Tobacco: Former Smokeless Tobacco: Never Alcohol Use Standard Drinks/Week Comments No 0 (1 standard drink = 0.6 oz pur e alcohol) Comments No Sex and Gender Information Value Date Recorded Sex Assigned at Not on file Legal Sex Female 11:42 PM GUEST SERVICES AGENT Gender Identity Female 05/18/2022 8:41 AM GUEST SERVICES AGENT Sexual Orientation Straight 05/18/2022 8: 41 AM GUEST SERVICES AGENT documented as of this encounter Plan of Treatment Not on file documented as of this encounter Procedures Procedure Name Priority Date/Time Associated Diagnosis Comments CARDIOLOGY REPORT 06/22/2018 12: 00 AM GUEST SERVICES AGENT documented in this encounter Results * CARDIOLOGY REPORT (06/22/2018 12:00 AM GUEST SERVICES AGENT) Anatomical Region Laterality Modality Other Narrative 06/22/2018 12:00 AM GUEST SERVICES AGENT Ordered by an unspecified provider. us Historical Provider [facility] CARDIAC [facility] EDEN FOWLER Final Result documented in this encounter Visit Diagnoses Not on filedocumented in this encounter Additional Health Concerns Infection Onset Date Last Indicated Resolved Time COVID: Suspected 01/21/2023 01/21/2023 01/21/2023 2:44 PM CDT COVID: Suspected 01/21/2023 01/21/2023 01/21/2023 8:57 PM CDT documented as of this encounter Care Teams Kettle Tender Relationship Specialty Start Date End Date Denys Smith MD [address] [place] [address] PCP - General 09/14/17 03/02/22 Reji Lucero DO [address] [place] [address] PCP - General Internal Medicine 03/03/22 02/01/23 Waqas Araujo MD [address] [place] [address] PCP - General Family Practice 02/02/23 Jace Cheek MD [address] [place] [address] Consulting Physician Neurosurgery 05/30/23 documented as of this encounter
--- OUTSIDE RECORDS SUMMARY | 2025-03-29 10:16 | XMS_ITS | Encounter Summary ---
Author Organization [facility] Address [address] [place] [address] Care Team Providers Care Food Service Tray Attendant Name Role Phone Denys Smith MD Primary Care Provider [phone] Reji Lucero DO Primary Care Provider [phone] Waqas Araujo MD Primary Care Provider [phone] Jace Cheek MD Unavailable [phone] Encounter Details Date Type Department Care Team (Late st Contact Info) Description 03/20/2018 Orders Only [facility] Health Information Management [address] [place] [address] Scanning, Provider Social History Tobacco Use Types Packs/Day Years Used Date Smoking Tobacco: Former Smokeless Tobacco: Never Alcohol Use Standard Drinks/Week Comments No 0 (1 standard drink = 0.6 oz pur e alcohol) Comments No Sex and Gender Information Value Date Recorded Sex Assigned at Not on file Legal Sex Female 11:42 PM STAFF NURSE ICU RESOURCE TEAM Gender Identity Female 05/18/2022 8:41 AM STAFF NURSE ICU RESOURCE TEAM Sexual Orientation Straight 05/18/2022 8: 41 AM STAFF NURSE ICU RESOURCE TEAM documented as of this encounter Plan of Treatment Not on file documented as of this encounter Procedures Procedure Name Priority Date/Time Associated Diagnosis Comments CARDIOLOGY DOCUMENT SCAN 03/20/2018 documented in this encounter Results * Cardiology Document Scan (03/20/2018) Anatomical Region Laterality Modality Other us Provider Scanning [facility] PROCEDURES Final Result documented in this encounter Visit Diagnoses Not on filedocumented in this encounter Additional Health Concerns Infection Onset Date Last Indicated Resolved Time COVID: Suspected 01/21/2023 01/21/2023 01/21/2023 2:44 PM CDT COVID: Suspected 01/21/2023 01/21/2023 01/21/2023 8:57 PM CDT documented as of this encounter Care Teams Food Service Tray Attendant Relationship Specialty Start Date End Date Denys Smith MD [address] [facility] [address] [facility] [address] [place] [address] PCP - General 09/14/17 03/02/22 Reji Lucero DO [address] [facility] [address] [facility] [address] [place] [address] PCP - General Internal Medicine 03/03/22 02/01/23 Waqas Araujo MD [address] [facility] [address] [facility] [address] [place] [address] PCP - General Family Practice 02/02/23 Jace Cheek MD [address] [facility] [address] [place] [address] Consulting Physician Neurosurgery 05/30/23 documented as of this encounter
--- OUTSIDE RECORDS SUMMARY | 2025-03-29 10:16 | XMS_ITS | Clinical Summary ---
Author Organization [facility] Address [address] [place] [address] Care Team Providers Care Lead Massage Therapist Name Role Phone Remington Walter MD Unavailable [phone] Reji Lucero DO Primary Care Provider [phone] Source Comments [facility],non-owned Affiliates and Associated Physician Practices is amultiple site organization consisting of ambulatory clinics and hospital sitesin [place], [place], [place] and [place]. This disclosure is being madepursuant to the Care Everywhere program and may not contain all information available regarding this patient. Last updated 18.[facility] Allergies No known active allergies Medications * Be aware that medications may not be up to date on this document. Alwaysverify current medications with the patient. Docusate Sodium (COLACE PO) Take 100 mg by mouth once daily. Active Escitalopram Oxalate (LEXAPRO PO) Take by mouth once daily. Active amlodipine-benaz epril (LOTREL) 5-20 MG capsule Take 1 Cap by mouth 2 times daily. Active diphenhydrAMINE (BENADRYL) 25 MG tablet Take 50 mg by mouth at bedtime. Active HYDROCHLOROTHIAZ JAMES PO Active Topiramate (TOPAMAX PO) Active Active Problems Problem Noted Date Diagnosed [...] at Not on file Legal Sex Female 12:26 PM CDT Gender Identity Not on file Sexual Orientation Not on file Last Filed Vital Signs Vital Sign Reading Time Taken Comments Blood Pressure 122/74 08/12/2018 11:56 AM GARNETT ROOM WORKER Pulse 60 08/12/2018 11:56 AM GARNETT ROOM WORKER Temperature 36.7 C (98 F) 08/12/2018 11:56 AM GARNETT ROOM WORKER Respiratory Rate 17 08/12/2018 11:56 AM GARNETT ROOM WORKER Oxygen Saturation 97% 08/12/2018 11:56 AM GARNETT ROOM WORKER Inhaled Oxygen Concentration - - Weight 95.3 kg (210 lb) 08/12/2018 11:56 AM GARNETT ROOM WORKER Height 170.2 cm (5' 7) 08/12/2018 11:56 AM GARNETT ROOM WORKER Body Mass Index 32.89 08/12/2018 11:56 AM GARNETT ROOM WORKER Plan of Treatment Health Maintenance Due Date Last Done Comments BONE DENSITY TESTING 1955 COLOGUARD (AGES 45-75) - COL ON CA SCREENING 1954 COLON MONITORING 1954 COLONOSCOPY - COLON CA SCREENING 1954 CT COLONOGRAPHY - COLON CA SCREENING 1955 Colorectal Cancer Screening 1954 FIT - COLON CA SCREENING 1954 FLEX SIG - COLON CA SCREENING 1954 LIPID TESTING 1954 MAMMOGRAM 1954 HEPATITIS C SCREENING 08/03/1972 DTAP/TDAP/TD VACCINES (1 - Tdap) 1973 PNEUMOCOCCAL VACCINE 50+ (1 of 1 - PCV) 2004 ZOSTER VACCINE (1 of 2) 2004 SCREENING FOR DIABETES 08/12/2018 12/201 4, 06/05/2014 DEPRESSION SCREENING 07/11/2024 COVID-19 VACCINE (1 - 2023-2 5 season) 2025 INFLUENZA VACCINE (#1) 2025 Respiratory Syncytial Virus (RSV) Vaccine Pt: or [...] complete this topic MENINGOCOCCAL (Group B) VACCINE SHARED DECISION-MAKING Aged Out No longer eligible based on patient's age to complete this topic MENINGOCOCCAL GROUPS A/C/Y/W VACCINE Aged Out No longer eligible b ased on patient's age to complete this topic Medical Devices Implanted Type Area Transitions Manager Device Identifier Shelf Expiration Date Model / Serial / Lot All Bone Lucan Hv Implanted:Qty: 1 on 06/24/2014 by Remington Walter MD at [facility] Right: [employer] 02/07/2016 [id number] / / [id number] Ty Tibial I Beam Fix Bar 71mm Implanted:Qty: 1 on 06/24/2014 by Remington Walter MD at [facility] Right: [employer] 05/09/2024 [id number] / / [id number] Kn Ins Vangurd Fem Cocr R-Intlok 62.5mm Implanted:Qty: 1 on 06/24/2014 by Remington Walter MD at [facility] Right: [employer] 11/07/2022 [id number] / / [id number] Butn Pat Arcom Wire Polyeth Xsm 28 X 8 Implanted:Qty: 1 on 06/24/2014 by Remington Walter MD at [facility] Right: [employer] 04/09/2019 [id number] / / [id number] Brdg Tib Magalys Stbl 12mm X 71mm Implanted:Qty: 1 on 06/24/2014 by Remington Walter MD at [facility] Right: [employer] 05/09/2019 [id number] / / [id number] Procedures Procedure Name Priority Date/Time Associated Diagnosis Comments BASIC METABOLIC PANEL (CALCIUM TOTAL) AM Draw 06/25/2014 4:20 AM GARNETT ROOM WORKER from Last 3 Months or Most Recently Relevant to Health Maintenance Results * (ABNORMAL) BASIC METABOLIC PANEL (CALCIUM TOTAL) (06/25/2014 4:20 AM GARNETT ROOM WORKER) Glucose 99 74 - 106 mg/dL 06/25/2014 4:50 AM [facility] Sodium 136 136 - 145 mmol/L 06/25/2014 4:50 AM [facility] Potassium 4.0 3.5 - 5.1 mmol/L 06/25/2014 4:50 AM [facility] Chloride 104 98 - 107 mmol/L 06/25/2014 4:50 AM [facility] CO2 27 22 - 31 mmol/L 06/25/2014 4:50 AM [facility] Calcium 8.4(L) 8.5 - 10.1 mg/dL 06/25/2014 4:50 AM [facility] Anion Gap 5 5 - 15 mmol/L 06/25/2014 4:50 AM [facility] BUN 14 7 - 21 mg/dL 06/25/2014 4:50 AM [facility] Creatinine 1.07 0.50 - 1.30 mg/dL 06/25/2014 4:50 AM [facility] eGFR by MDRD 52(L) >60 mL/min/1.7 3m2 06/25/2014 4:50 AM [facility] eGFR by MDRD >60 >60 mL/min/1.7 3m2 06/25/2014 4:50 AM [facility] Blood BLOOD SPECIMEN / Unknown 06/25/2014 4:20 AM GARNETT ROOM WORKER 06/25/2014 4:28 AM [facility] us Octavia Dover MD LAB - CHEMISTRY ORDERABLES Final Result [facility] [address] [place] [address] from Last 3 Months or Most Recently Relevant to Health Maintenance [place] [facility] Address[place] [address] [place] [address] MEDICARE AETNA Advance Directives * Full Code (Latest Code Status on File) Date Activated Date Inactivated Comments 06/24/2014 11:53 AM 06/26/2014 7:42 PM Care Teams Lead Massage Therapist Relationship Specialty Start Date End Date Reji Lucero DO [address] [place] [address] PCP - General 07/06/22 [place] [address] [facility] [address] [place] [address] Orthopedic Surgery 05/13/14
--- OUTSIDE RECORDS SUMMARY | 2025-03-29 10:16 | XMS_ITS | Encounter Summary ---
Author Organization [facility] Facility Care Team Providers Care Credit Advisor Name Role Phone Denys Smith MD Primary Care Provider [phone] Reji Lucero DO Primary Care Provider [phone] Waqas Araujo MD Primary Care Provider [phone] Jace Cheek MD Unavailable [phone] Encounter Details Date Type Department Care Team (Latest Contact Info) Description 07/12/2018 Orders Only [facility] CLINCONV ProviderLencho MD [address] [place] [address] Social History Tobacco Use Types Packs/Day Years Used Date Smoking Tobacco: Former Smokeless Tobacco: Never Alcohol Use Standard Drinks/Week Comments No 0 (1 standard drink = 0.6 oz pur e alcohol) Comments No Sex and Gender Information Value Date Recorded Sex Assigned at Not on file Legal Sex Female 11:42 PM OIL SPOT WASHER Gender Identity Female 05/18/2022 8:41 AM OIL SPOT WASHER Sexual Orientation Straight 05/18/2022 8: 41 AM OIL SPOT WASHER documented as of this encounter Plan of Treatment Not on file documented as of this encounter Procedures Procedure Name Priority Date/Time Associated Diagnosis Comments CARDIOLOGY REPORT 07/13/2018 12: 00 AM OIL SPOT WASHER documented in this encounter Results * CARDIOLOGY REPORT (07/13/2018 12:00 AM OIL SPOT WASHER) Anatomical Region Laterality Modality Other Narrative 07/13/2018 12:00 AM OIL SPOT WASHER Ordered by an unspecified provider. us Historical Provider [facility] EDEN FOWLER Final Result documented in this encounter Visit Diagnoses Not on filedocumented in this encounter Additional Health Concerns Infection Onset Date Last Indicated Resolved Time COVID: Suspected 01/21/2023 01/21/2023 01/21/2023 2:44 PM CDT COVID: Suspected 01/21/2023 01/21/2023 01/21/2023 8:57 PM CDT documented as of this encounter Care Teams Credit Advisor Relationship Specialty Start Date End Date Denys Smith MD [address] [place] [address] PCP - General 09/14/17 03/02/22 Reji Lucero DO [address] [place] [address] PCP - General Internal Medicine 03/03/22 02/01/23 Waqas Araujo MD [address] [place] [address] PCP - General Family Practice 02/02/23 Jace Cheek MD [address] [place] [address] Consulting Physician Neurosurgery 05/30/23 documented as of this encounter
--- OUTSIDE RECORDS SUMMARY | 2025-03-29 10:16 | XMS_ITS | Encounter Summary ---
Author Organization [facility] Address [address] [place] [address] Phone Care Team Providers Care Bus And Trolley Dispatcher Name Role Phone Denys Smith MD Primary Care Provider [phone] Reji Lucero DO Primary Care Provider [phone] Waqas Araujo MD Primary Care Provider [phone] Jace Cheek MD Unavailable [phone] Encounter Details Date Type Department Care Team [...] on file Legal Sex Female 11:42 PM CARDROOM PLASTIC CARD GRADER Gender Identity Female 05/18/2022 8:41 AM CARDROOM PLASTIC CARD GRADER Sexual Orientation Straight 05/18/2022 8: 41 AM CARDROOM PLASTIC CARD GRADER documented as of this encounter Plan of [...] documented as of this encounter Care Teams Bus And Trolley Dispatcher Relationship Specialty Start Date End Date Denys Smith MD [address] [facility] [address] [place] [address] PCP - General 09/14/17 03/02/22 Reji Lucero DO [address] [facility] [address] [place] [address] PCP - General Internal Medicine 03/03/22 02/01/23 Waqas Araujo MD [address] [facility] [address] [place] [address] PCP - General Family Practice 02/02/23 Jace Cheek MD [address] [facility] [address] [place] [address] Consulting Physician Neurosurgery 05/30/23 documented as of this encounter
--- OUTSIDE RECORDS SUMMARY | 2025-03-29 10:16 | XMS_ITS | Encounter Summary ---
Author Organization [facility] Facility Care Team Providers Care Coring Machine Operator Name Role Phone Unknown, Notinfile Primary Care Provider Unavail able Denys Smith MD Primary Care Provider [phone] Reji Lucero DO Primary Care Provider [phone] Waqas Araujo MD Primary Care Provider [phone] Jace Cheek MD Unavailable [phone] Encounter Details Date Type Department Care Team (Latest Contact Info) Description 09/12/2017 Orders Only [facility] CLINCONV ProviderLencho MD [address] [place] [address] Social History Tobacco Use Types Packs/Day Years Used Date Smoking Tobacco: Never Smokeless Tobacco: Never Alcohol Use Standard Drinks/Week Comments No 0 (1 standard drink = 0.6 oz pur e alcohol) Comments No Sex and Gender Information Value Date Recorded Sex Assigned at Not on file Legal Sex Female 11:42 PM WIRE DROPPER Gender Identity Female 05/18/2022 8:41 AM WIRE DROPPER Sexual Orientation Straight 05/18/2022 8: 41 AM WIRE DROPPER documented as of this encounter Plan of Treatment Not on file documented as of this encounter Procedures Procedure Name Priority Date/Time Associated Diagnosis Comments CARDIOLOGY REPORT 08/10/2018 12: 00 AM WIRE DROPPER documented in this encounter Results * CARDIOLOGY REPORT (08/10/2018 12:00 AM WIRE DROPPER) Anatomical Region Laterality Modality Other Narrative 08/10/2018 12:00 AM WIRE DROPPER Ordered by an unspecified provider. us Historical Provider [facility] EDEN FOWLER Final Result documented in this encounter Visit Diagnoses Not on filedocumented in this encounter Additional Health Concerns Infection Onset Date Last Indicated Resolved Time COVID: Suspected 01/21/2023 01/21/2023 01/21/2023 2:44 PM CDT COVID: Suspected 01/21/2023 01/21/2023 01/21/2023 8:57 PM CDT documented as of this encounter Care Teams Coring Machine Operator Relationship Specialty Start Date End Date Unknown, Notinfile PCP - General 09/12/17 09/13/17 Denys Smith MD [address] [place] [address] PCP - General 09/14/17 03/02/22 Reji Lucero DO [address] [place] [address] PCP - General Internal Medicine 03/03/22 02/01/23 Waqas Araujo MD [address] [place] [address] PCP - General Family Practice 02/02/23 Jace Cheek MD [address] [place] [address] Consulting Physician Neurosurgery 05/30/23 documented as of this encounter
--- OUTSIDE RECORDS SUMMARY | 2025-03-29 10:16 | XMS_ITS | Encounter Summary ---
Author Organization [facility] Facility Care Team Providers Care Roofing Laborer Name Role Phone Denys Smith MD Primary Care Provider [phone] Reji Lucero DO Primary Care Provider [phone] Waqas Araujo MD Primary Care Provider [phone] Jace Cheek MD Unavailable [phone] Encounter Details Date Type Department Care Team (Latest Contact Info) Description 06/09/2018 Orders Only [facility]G CLINCONV ProviderLencho MD [address] [place] [address] Social History Tobacco Use Types Packs/Day Years Used Date Smoking Tobacco: Former Smokeless Tobacco: Never Alcohol Use Standard Drinks/Week Comments No 0 (1 standard drink = 0.6 oz pur e alcohol) Comments No Sex and Gender Information Value Date Recorded Sex Assigned at Not on file Legal Sex Female 11:42 PM UNIT TECHNICIAN Gender Identity Female 05/18/2022 8:41 AM UNIT TECHNICIAN Sexual Orientation Straight 05/18/2022 8: 41 AM UNIT TECHNICIAN documented as of this encounter Plan of Treatment Not on file documented as of this encounter Procedures Procedure Name Priority Date/Time Associated Diagnosis Comments CARDIOLOGY REPORT 06/09/2018 12: 00 AM UNIT TECHNICIAN CARDIOLOGY REPORT 06/09/2018 12: 00 AM UNIT TECHNICIAN documented in this encounter Results * CARDIOLOGY REPORT (06/09/2018 12:00 AM UNIT TECHNICIAN) Anatomical Region Laterality Modality Other Narrative 06/09/2018 12:00 AM UNIT TECHNICIAN Ordered by an unspecified provider. us Historical Provider [facility] PROCE DURES Final Result * CARDIOLOGY REPORT (06/09/2018 12:00 AM UNIT TECHNICIAN) Anatomical Region Laterality Modality Other Narrative 06/09/2018 12:00 AM UNIT TECHNICIAN Ordered by an unspecified provider. us Historical Provider CV CARDIAC SERVICES PROCE DURES Final Result documented in this encounter Visit Diagnoses Not on filedocumented in this encounter Additional Health Concerns Infection Onset Date Last Indicated Resolved Time COVID: Suspected 01/21/2023 01/21/2023 01/21/2023 2:44 PM CDT COVID: Suspected 01/21/2023 01/21/2023 01/21/2023 8:57 PM CDT documented as of this encounter Care Teams Roofing Laborer Relationship Specialty Start Date End Date Denys Smith MD [address] [facility] [address] [facility] [address] [place] [address] PCP - General 09/14/17 03/02/22 Reji Lucero DO [address] [place] [address] [address] [place] [address] PCP - General Internal Medicine 03/03/22 02/01/23 Waqas Araujo MD [address] [facility] [address] [place] [address] PCP - General Family Practice 02/02/23 Jace Cheek MD [address] [facility] [address] [place] [address] Consulting Physician Neurosurgery 05/30/23 documented as of this encounter
--- OUTSIDE RECORDS SUMMARY | 2025-03-29 10:16 | XMS_ITS | Encounter Summary ---
Author Organization [facility] Facility Care Team Providers Care Medical Researcher Name Role Phone Denys Smith MD Primary Care Provider [phone] Reji Lucero DO Primary Care Provider [phone] Waqas Araujo MD Primary Care Provider [phone] Jace Cheek MD Unavailable [phone] Encounter Details Date Type Department Care Team (Latest Contact Info) Description 06/07/2018 Orders Only [facility]G CLINCONV ProviderLencho MD [address] [place] [address] Social History Tobacco Use Types Packs/Day Years Used Date Smoking Tobacco: Former Smokeless Tobacco: Never Alcohol Use Standard Drinks/Week Comments No 0 (1 standard drink = 0.6 oz pur e alcohol) Comments No Sex and Gender Information Value Date Recorded Sex Assigned at Not on file Legal Sex Female 11:42 PM HEALTH ACTUARY Gender Identity Female 05/18/2022 8:41 AM HEALTH ACTUARY Sexual Orientation Straight 05/18/2022 8: 41 AM HEALTH ACTUARY documented as of this encounter Plan of Treatment Not on file documented as of this encounter Procedures Procedure Name Priority Date/Time Associated Diagnosis Comments SCAN - LABS 06/07/2018 12:00 AM HEALTH ACTUARY documented in this encounter Results * SCAN - LABS (06/07/2018 12:00 AM HEALTH ACTUARY) Narrative 06/07/2018 12:00 AM HEALTH ACTUARY Ordered by an unspecified provider. us Historical Provider Final Res ult documented in this encounter Visit Diagnoses Not on filedocumented in this encounter Additional Health Concerns Infection Onset Date Last Indicated Resolved Time COVID: Suspected 01/21/2023 01/21/2023 01/21/2023 2:44 PM CDT COVID: Suspected 01/21/2023 01/21/2023 01/21/2023 8:57 PM CDT documented as of this encounter Care Teams Medical Researcher Relationship Specialty Start Date End Date Denys Smith MD [address] [place] [address] PCP - General 09/14/17 03/02/22 Reji Lucero DO [address] [place] [address] PCP - General Internal Medicine 03/03/22 02/01/23 Waqas Araujo MD [address] [place] [address] PCP - General Family Practice 02/02/23 Jace Cheek MD [address] [place] [address] Consulting Physician Neurosurgery 05/30/23 documented as of this encounter
--- OUTSIDE RECORDS SUMMARY | 2025-03-29 10:16 | XMS_ITS | Clinical Summary ---
Author Organization [facility] Address [address] [place] [address] Care Team Providers Care Special Distribution Clerk Name Role Phone Tim Perera NP Primary Care Provider [phone] Allergies No known active allergies Medications escitalopram [...] Comments Blood Pressure 118/65 05/15/2019 11:52 AM CLIENT SERVICE SUPERVISOR Pulse 61 05/15/2019 11:52 AM CLIENT SERVICE SUPERVISOR Temperature 36.6 C (97.8 F) 05/15/2019 11:23 AM CLIENT SERVICE SUPERVISOR Respiratory Rate 18 05/15/2019 11:52 AM CLIENT SERVICE SUPERVISOR Oxygen Saturation 95% 05/15/2019 11:52 AM CLIENT SERVICE SUPERVISOR Inhaled Oxygen Concentration - - Weight 88.5 kg (195 lb) 05/10/2019 1:33 PM CDT Height 170.2 cm (5' 7) 05/10/2019 1:33 PM CDT Body Mass Index 30.54 05/10/2019 1:33 PM CDT Plan of Treatment Health Maintenance Due Date Last Done Comments Hepatitis C 1972 DTaP, Tdap and Td Vaccines ( 1 - Tdap) 1973 Mammogram Screening 1994 Pneumococcal Vaccine: 50+ Years (1 of 1 - PCV) 2004 Zoster Vaccines (1 of 2) 2004 Annual Medicare Wellness Visit 2019 Dexa Scan (General) 2019 COVID-19 Vaccine ( - 2023-2 5 season) 2025 Colorectal Cancer Screening Colonoscopy (10 Years) 05/15/2029 [...] Diagnosis Comments COLONOSCOPY Routine 05/15/2019 8:59 AM CLIENT SERVICE SUPERVISOR from Last 3 Months or Most Recently Relevant to Health Maintenance Insurance [employer] Care Teams Special Distribution Clerk Relationship Specialty Start Date End Date Tim Perera NP PCP - General NURSE PRACTITIONER 05/14/19
--- OUTSIDE RECORDS SUMMARY | 2025-03-29 10:16 | XMS_ITS | Clinical Summary ---
Author Organization [facility] Address [address] [place] [address] Care Team Providers Care Odd Bundle Worker Name Role Phone Waqas Araujo MD Primary Care Provider [phone] Allergies No known active allergies Medications amLODIPine-kassie [...] Encounters Date Type Department Care Team Description 03/26/2025 External Device Data STL ABSTRACTION Provider, Abstract 03/19/2025 External Device Data STL ABSTRACTION Provider, Abstract 02/27/2025 External Device Data STL ABSTRACTION Provider, Abstract 02/12/2025 External Device Data STL ABSTRACTION Provider, Abstract 01/30/2025 Telephone [facility] - [place] [address] [place] [id number] John Aponte MD Cancelled Appt 01/23/2025 External Device Data STL ABSTRACTION Provider, Abstract 01/23/2025 External Device Data STL ABSTRACTION Provider, Abstract from Last 3 Months Family History Medical [...] Former Cigarettes 2 20 Q uit: 07/11/1997 Tobacco Cessation:Counseling Given: Not Answered Alcohol Use [...] Sign Reading Time Taken Comments Blood Pressure 96/52 08/10/2024 8:40 AM MOLDER PUNCH Pulse 53 08/10/2024 8:40 AM MOLDER PUNCH Temperature 36.4 C (97.6 F) 08/10/2024 8:40 AM MOLDER PUNCH Respiratory Rate 16 08/10/2024 8:40 AM MOLDER PUNCH Oxygen Saturation 96% 08/10/2024 8:40 AM MOLDER PUNCH Inhaled Oxygen Concentration - - Weight 82.8 kg (182 lb 9.6 oz) 08/10/2024 8:40 A M MOLDER PUNCH Height 167.6 cm (5' 6) 05/15/2024 10:37 AM MOLDER PUNCH Body Mass Index 29.47 05/15/2024 10:37 AM MOLDER PUNCH Plan of Treatment Upcoming Encounters Date Type Department Care Team (Late st Contact Info) Description 05/08/2025 2:15 PM CDT Office Visit [facility] - [place] [address] [place] [id number] John Aponte MD [address] [facility] [address] [place] [address] Health Maintenance Due Date Last Done Comments Pre-Diabetes and Diabetes Screening 1954 DTAP/TDAP/TD VACCINES (1 - Tdap) 1973 PNEUMOCOCCAL VACCINE 50+ YEA RS (1 of 2 - PCV) 1973 02/23/2013 ZOSTER VACCINE (1 of 2) 1973 FIT-DNA Q 3 years 1999 FIT/FOBT Q 1 year 1999 Flex Sig/CT Colonography Q 5 years 1999 RSV VACCINE (60+ or ) (1 - Risk 60-74 years 1-dose series) 2014 BREAST CANCER SCREENING 03/31/2024 03/31/20 23, 03/31/2023, 01/17/2021, Additional history exists INFLUENZA VACCINE (#1) 2025 03/20/2018, 2014 OSTEOPOROSIS SCREENING 01/17/2026 01/17/2021 COLORECTAL SCREENING 05/15/2029 05/15/2019 Colorectal Cancer Screening 05/15/2029 Insurance MEDICARE PART A AND B [employer] MEDICARE SUPP AESSI Care Teams Odd Bundle Worker Relationship Specialty Start Date End Date Waqas Araujo MD [address] [place] [address] PCP - General Family Practice 05/15/24
--- OUTSIDE RECORDS SUMMARY | 2025-03-29 10:16 | XMS_ITS | Clinical Summary ---
Author Organization [facility] Andre[facility] martinez Address [address] [place] [address] Phone Care Team Providers Care Vacuum Technician Name Role Phone Reji Lucero Primary Care Provider [phone] Allergies No known active allergies Medications hydroxychloroqu ine (PLAQUENIL) 200 MG tablet 02/12/2022 Activ e escitalopram (LEXAPRO) 10 MG tablet Take 10 mg by mouth 1 (one) time each day Active hydroCHLOROthia zide (HYDRODIURIL) 25 MG tablet Take 25 mg by mouth Prn swelling Active topiramate (TOPAMAX) 100 MG tablet Take 100 mg by mouth in the morning and 100 mg in the evening. Active diphenhydrAMINE (SOMINEX) 25 MG tablet Take 25 mg by mouth at night if needed Active amLODIPine-ator vastatin (CADUET) 5-20 MG per tablet Take 1 [...] day Active Cholecalciferol (Vitamin D3) 50 MCG (1999 UT) tablet Take 4,000 Units by mouth [...] oz pur e alcohol) one a week Comments Unknown Sex and Gender Information Value Date Recorded Sex Assigned at Not on file Legal Sex Female 8:53 AM MDT Gender Identity Not on file Sexual Orientation Not on file Last Filed Vital Signs Vital Sign Reading Time Taken Comments Blood Pressure - - Pulse - - Temperature 36.4 C (97.5 F) 05/10/2022 10:15 AM CDT Respiratory Rate - - Oxygen Saturation - - Inhaled Oxygen Concentration - - Weight 93.4 kg (206 lb) 05/10/2022 10:15 AM CDT Height 170.2 cm (5' 7) 05/10/2022 10:15 AM CDT Body Mass Index 32.26 05/10/2022 10:15 AM CDT Plan of Treatment Health Maintenance Due Date Last Done Comments Pneumococcal PPSV23/PCV13 65 + Years / Low and Medium Risk (1 of 2 - PCV) 2004 Influenza Vaccine (#1) 2025 Insurance MEDICARE A[employer]NA Care Teams Vacuum Technician Relationship Specialty Start Date End Date Reji Lucero DO [address] [place] [address] PCP - General Internal Medicine 05/03/22
--- OUTSIDE RECORDS SUMMARY | 2025-03-29 10:17 | XMS_ITS | Clinical Summary ---
Author Organization [facility] Address [address] [place] [address] Care Team Providers Care Meringuer Name Role Phone Waqas Araujo MD Primary Care Provider [phone] Jace Cheek MD Unavailable [phone] Allergies No known active allergies Medications escitalopram [...] Active Additional Information Patient not taking.Reported on 01/02/2025 ondansetron ODT (ZOFRAN-ODT) 4 mg disintegrating tablet Take 1 tablet (4 mg total) by mouth 3 (three) times a day as needed for nausea or vomiting 20 tablet 2 05/19/20 23 Active isosorbide mononitrate ER (IMDUR) 30 mg 24 hr tablet TAKE 1 TABLET(30 MG) BY MOUTH DAILY 90 tablet 2 05/20/20 23 Active Additional Information Patient not taking.Reported on 01/02/2025 Active Problems Problem Noted Date Diagnosed Date Thyroid nodule 01/02/2025 Stroke-like symptoms 05/15/2023 SIMEON (acute kidney injury) [...] Overview (03/30/2021): 2015 IMO Updt Hypertensive urgency Encounters Date Type Department Care Team Description 01/02/2025 3:00 PM CDT Office Visit [facility] Pulmonary [address] [place] [id number] Helen Martin MD Thyroid nodule (Primary Dx); Smoking greater than 30 pack years; Essential hypertension from Last 3 Months Immunizations Immunization Administration Dates Next Due Influenza, Quadrivalent, Spl [...] drink = 0.6 oz pur e alcohol) [facility] Utilities Answer Date Recorded In the past 12 months has [employer], gas, oil, or water [employer] threatened to shut off services in your home? No 05/16/2023 Social Connection and Isolation Panel Answer Date Recorded In a typical week, how many times do you talk on the phone with family, friends, or neighbors? More than three times a week 05/16/2023 How often do you get togethe r with friends or relatives? More than three times a week 05/16/2023 How often do you attend [facility] or scientology services? 1 to 4 times per year 05/16/2023 Do you belong to any clubs o r organizations such as quaker groups, unions, fraternal or athletic groups, or [...] place to sleep or slept in a intermediate (including now)? No 05/16/2023 Personal Safety Answer Date Recorded Have you ever been in or are you currently in a harmful physical or emotional relationship or is someone making you feel afraid or unsafe? Denies 05/16/2023 Comments No Sex and Gender Information Value Date Recorded Sex Assigned at Not on file Legal Sex Female 11:42 PM TIRE DEBEADER Gender Identity Female 05/18/2022 8:41 AM TIRE DEBEADER Sexual Orientation Straight 05/18/2022 8: 41 AM TIRE DEBEADER Obstetrics History Last Filed Vital Signs Vital Sign Reading Time Taken Comments Blood Pressure 120/70 01/02/2025 3:02 PM CDT Pulse 86 01/02/2025 3:02 PM CDT Temperature 35.8 C (96.5 F) 01/02/2025 3:02 PM CDT Respiratory Rate 17 01/02/2025 3:02 PM CDT Oxygen Saturation 96% 01/02/2025 3:02 PM CDT Inhaled Oxygen Concentration - - Weight 76.7 kg (169 lb) 01/02/2025 3:02 PM CDT Height 170.2 cm (5' 7) 01/02/2025 3:02 PM CDT Body Mass Index 26.47 01/02/2025 3:02 PM CDT Plan of Treatment Health Maintenance Due Date Last Done Comments Breast Cancer Screening-Mammogram 1954 Colon Cancer Screening-Colonoscopy 1954 Depression Screening 1954 Osteoporosis Screening-Bone Density Scan 1954 DTaP/Tdap/Td Vaccine (1 - Tdap) 1965 Hepatitis B Screening 1972 Pneumococcal vaccine 65+ (1 of 1 - PCV) 2004 02/23/2013 Zoster Vaccine (1 of 2) 2004 Well Visit 65+ 2019 Fall Risk Assessment 05/19/2024 05/19/2023 Covid-19 Vaccine (3 - 2024-2 6 season) 2025 08/29/2020, 07/31/2020 Influenza Vaccine (#1) 2025 8, 04/30/2015, 04/24/2014, Additional history exists Hepatitis C Screening Completed 03/30/2021 Medical Devices Implanted Type Area Missile Control Pilot Device Identifier Shelf Expiration Date Model / Serial / Lot [employer] Angio-Seal Vip 6fr Closere Device [id number] - [id number] Implanted:Qty: 1 on 03/18/2023 by Amparo Hinds MD at [facility] [employer] 08/10/2023 [id number] / / [id number] Procedures Procedure Name Priority Date/Time Associated Diagnosis Comments HEPATITIS C ANTIBODY Routine 03/30/2021 2:20 PM CDT Unspecified abnormal finding in specimens from other organs, systems and tissues Arthralgia, unspecified joint from Last 3 Months or Most Recently Relevant to Health Maintenance Results * Hepatitis C antibody (03/30/2021 2:20 PM CDT) Hep C Ab Nonreactive Nonreactive [facility] Comment:Antibodies to HCV no t detected. Does NOT exclude the possibility of recent exposure to HCV. Blood 03/30/2021 2:20 PM CDT 03/30/2021 6:12 PM CDT us Kala Garrison NP LAB MICROBIOLOGY - GENERA L ORDERABLES Edited Result - Final [facility]EL [facility] Department [place] [address] from Last 3 Months or Most Recently Relevant to Health Maintenance Insurance MEDICARE AET [facility] MEDICARE AETNA SENIOR SUPPLEMENT Advance Directives For more information, please contact: [phone] * Full Code (Latest Code Status on File) Date Activated Date Inactivated Comments 05/15/2023 3:30 PM 05/19/2023 9:11 PM * Full Code Date Activated Date Inactivated Comments 03/18/2023 11:16 AM 03/18/2023 5:54 PM * Full Code Date Activated Date Inactivated Comments 09/12/2017 1:59 AM 09/13/2017 5:14 PM Care Teams Meringuer Relationship Specialty Start Date End Date Waqas Araujo MD PCP - General Family Practice 02/02/23 Jace Cheek MD Consulting Physician Neurosurgery 05/30/23
== END 2025-03-29 10:12 | disposition home or self-care (01) ==
LOC: ANHFOHIMG 10:15
PROVIDERS: PCP Nurse Practitioner Family; Visit Provider Nurse Practitioner Family
DX: Z12.31 Encounter for screening mammogram for malignant neoplasm of breast (principal)
CPT/HCPCS: 77063; 77067

== ENCOUNTER 2025-05-03 13:21 | Outpatient (CLI) | payer MEDICARE, SELFPAY ==
--- NOTE | ~2025-05-03 | DEXA_ITS ---
Bone Density Report Name: DARLIN URRUTIA Age: 69 Sex: Female Ethnicity: White Date of : 1955 Indication: postmenopausal; screening for osteoporosis; Referring Provider: CHARLOTTE BOSCH Study: Bone densitometry was performed. Exam Date: May 03, 2025 Accession number: [id number] Bone Density: Region BMD T-score Z-score Classification AP Spine(L1-L4) 0.826 -2.0 0.1 Osteopenia Femoral Neck (Left) 0.597 -2.3 -0.4 Osteopenia Total Hip (Left) 0.718 -1.8 -0.3 Osteopenia Femoral Neck (Right) 0.585 -2.4 -0.5 Osteopenia Total Hip (Right) 0.793 -1.2 0.3 Osteopenia Total Hip Mean 0.756 -1.5 0.0 Osteopenia World Health Organization criteria for BMD impression classify patients as: Normal (T-score at or above -1.0), Osteopenia (T-score between -1.0 and -2.5), or Osteoporosis (T-score at or below -2.5). 10-year Fracture Risk(1): Major Osteoporotic Fracture 14% Hip Fracture 3.3% Reported Risk Factors: [place] (), Neck BMD=0.585, BMI=25.8 (1) FRAX(R) Version 3.08. Fracture probability calculated for an untreated patient. Fracture probability may be lower if the patient has received treatment. Impression: The patient has low bone mass, based on the Right Femoral Neck T-score. The patient has an estimated ten-year risk of hip fracture of 3.3% and an estimated ten-year risk of major fracture of 14%, based on the WHO FRAX algorithm. Discussion: BONE DENSITY IS LOW AT ONE OR MORE SKELETAL SITES. THE PATIENT'S BMD AND CLINICAL RISK FACTORS CONTRIBUTE TO THIS PATIENT'S INCREASED RISK OF FRACTURE. This patient's lowest T-score is low at one or more skeletal sites. It meets the World Health Organization's (WHO) criteria for ?low bone mass? (T-score between -1.0 and -2.5). The patient's 10-year risk of hip fracture as calculated by FRAX exceeds the threshold where pharmacological therapy is recommended by the National Osteoporosis Foundation (NOF). However, all treatment decisions require clinical judgment and consideration of individual patient factors, including patient preferences, comorbidities, previous drug use, risk factors not captured in the FRAX model (e.g., frailty, falls, vitamin D deficiency, increased bone turnover, interval significant decline in bone density) and possible under or overestimation of fracture risk by FRAX. The patient should follow a healthful lifestyle (good nutrition with adequate calcium and vitamin D, and appropriate weight-bearing exercise). Follow-Up: Consider a repeat BMD and Vertebral Fracture Assessment (VFA) exam in 2 years or sooner if medically necessary, to reassess this patient's status. Reported by: SAMUEL on 05/03/2025 1:58:00 PM. Reviewed, dictated and finalized at location A.
--- OUTSIDE RECORDS SUMMARY | 2025-05-03 13:25 | XMS_ITS | Encounter Summary ---
Author Organization [facility] Facility Care Team Providers Care Consumer Loan Underwriter Name Role Phone Denys Smith MD Primary Care Provider [phone] Reji Lucero DO Primary Care Provider [phone] Waqas Araujo MD Primary Care Provider [phone] Jace Cheek MD Unavailable [phone] Encounter Details Date Type Department Care Team (Latest Contact Info) Description 06/09/2018 Orders Only [facility] CLINCONV ProviderLencho MD [address] [place] [address] Social History Tobacco Use Types Packs/Day Years Used Date Smoking Tobacco: Former Smokeless Tobacco: Never Alcohol Use Standard Drinks/Week Comments No 0 (1 standard drink = 0.6 oz pur e alcohol) Comments No Sex and Gender Information Value Date Recorded Sex Assigned at Not on file Legal Sex Female 11:42 PM DRAMATIC TEACHER Gender Identity Female 05/18/2022 8:41 AM DRAMATIC TEACHER Sexual Orientation Straight 05/18/2022 8: 41 AM DRAMATIC TEACHER documented as of this encounter Plan of Treatment Not on file documented as of this encounter Procedures Procedure Name Priority Date/Time Associated Diagnosis Comments CARDIOLOGY REPORT 06/09/2018 12: 00 AM DRAMATIC TEACHER CARDIOLOGY REPORT 06/09/2018 12: 00 AM DRAMATIC TEACHER documented in this encounter Results * CARDIOLOGY REPORT (06/09/2018 12:00 AM DRAMATIC TEACHER) Anatomical Region Laterality Modality Other Narrative 06/09/2018 12:00 AM DRAMATIC TEACHER Ordered by an unspecified provider. us Historical Provider CV CARDIAC SERVICES PROCE DURES Final Result * CARDIOLOGY REPORT (06/09/2018 12:00 AM DRAMATIC TEACHER) Anatomical Region Laterality Modality Other Narrative 06/09/2018 12:00 AM DRAMATIC TEACHER Ordered by an unspecified provider. us Historical Provider CV CARDIAC SERVICES PROCE DURES Final Result documented in this encounter Visit Diagnoses Not on filedocumented in this encounter Additional Health Concerns Infection Onset Date Last Indicated Resolved Time COVID: Suspected 01/21/2023 01/21/2023 01/21/2023 2:44 PM CDT COVID: Suspected 01/21/2023 01/21/2023 01/21/2023 8:57 PM CDT documented as of this encounter Care Teams Consumer Loan Underwriter Relationship Specialty Start Date End Date Denys Smith MD PCP - General 09/14/17 03/02/22 Reji Lucero DO PCP - General Internal Medicine 03/03/22 02/01/23 Waqas Araujo MD PCP - General Family Practice 02/02/23 Jace Cheek MD Consulting Physician Neurosurgery 05/30/23 documented as of this encounter
--- OUTSIDE RECORDS SUMMARY | 2025-05-03 13:25 | XMS_ITS | Encounter Summary ---
Author Organization [facility] Facility Care Team Providers Care Manager Web Name Role Phone Denys Smith MD Primary Care Provider [phone] Reji Lucero DO Primary Care Provider [phone] Waqas Araujo MD Primary Care Provider [phone] Jace Cheek MD Unavailable [phone] Encounter Details Date Type Department Care Team (Latest Contact Info) Description 06/07/2018 Orders Only [facility] CLINCONV ProviderLencho MD [address] [place] [address] Social History Tobacco Use Types Packs/Day Years Used Date Smoking Tobacco: Former Smokeless Tobacco: Never Alcohol Use Standard Drinks/Week Comments No 0 (1 standard drink = 0.6 oz pur e alcohol) Comments No Sex and Gender Information Value Date Recorded Sex Assigned at Not on file Legal Sex Female 11:42 PM GRATED CHEESE MAKER Gender Identity Female 05/18/2022 8:41 AM GRATED CHEESE MAKER Sexual Orientation Straight 05/18/2022 8: 41 AM GRATED CHEESE MAKER documented as of this encounter Plan of Treatment Not on file documented as of this encounter Procedures Procedure Name Priority Date/Time Associated Diagnosis Comments SCAN - LABS 06/07/2018 12:00 AM GRATED CHEESE MAKER documented in this encounter Results * SCAN - LABS (06/07/2018 12:00 AM GRATED CHEESE MAKER) Narrative 06/07/2018 12:00 AM GRATED CHEESE MAKER Ordered by an unspecified provider. us Historical Provider Final Res ult documented in this encounter Visit Diagnoses Not on filedocumented in this encounter Additional Health Concerns Infection Onset Date Last Indicated Resolved Time COVID: Suspected 01/21/2023 01/21/2023 01/21/2023 2:44 PM CDT COVID: Suspected 01/21/2023 01/21/2023 01/21/2023 8:57 PM CDT documented as of this encounter Care Teams Manager Web Relationship Specialty Start Date End Date Denys Smith MD PCP - General 09/14/17 03/02/22 Reji Lucero DO PCP - General Internal Medicine 03/03/22 02/01/23 Waqas Araujo MD PCP - General Family Practice 02/02/23 Jace Cheek MD Consulting Physician Neurosurgery 05/30/23 documented as of this encounter
--- OUTSIDE RECORDS SUMMARY | 2025-05-03 13:25 | XMS_ITS | Encounter Summary ---
Author Organization [facility] Facility Care Team Providers Care Deputy Head Name Role Phone Denys Smith MD Primary Care Provider [phone] Reji Lucero DO Primary Care Provider [phone] Waqas Araujo MD Primary Care Provider [phone] Jace Cheek MD Unavailable [phone] Encounter Details Date Type Department Care Team (Latest Contact Info) Description 07/12/2018 Orders Only [facility] CLINCONV ProviderLencho MD [address] [place] [address] Social History Tobacco Use Types Packs/Day Years Used Date Smoking Tobacco: Former Smokeless Tobacco: Never Alcohol Use Standard Drinks/Week Comments No 0 (1 standard drink = 0.6 oz pur e alcohol) Comments No Sex and Gender Information Value Date Recorded Sex Assigned at Not on file Legal Sex Female 11:42 PM MELTING FURNACE SKIMMER Gender Identity Female 05/18/2022 8:41 AM MELTING FURNACE SKIMMER Sexual Orientation Straight 05/18/2022 8: 41 AM MELTING FURNACE SKIMMER documented as of this encounter Plan of Treatment Not on file documented as of this encounter Procedures Procedure Name Priority Date/Time Associated Diagnosis Comments CARDIOLOGY REPORT 07/13/2018 12: 00 AM MELTING FURNACE SKIMMER documented in this encounter Results * CARDIOLOGY REPORT (07/13/2018 12:00 AM MELTING FURNACE SKIMMER) Anatomical Region Laterality Modality Other Narrative 07/13/2018 12:00 AM MELTING FURNACE SKIMMER Ordered by an unspecified provider. us Historical Provider CV CARDIAC SERVICES EDEN FOWLER Final Result documented in this encounter Visit Diagnoses Not on filedocumented in this encounter Additional Health Concerns Infection Onset Date Last Indicated Resolved Time COVID: Suspected 01/21/2023 01/21/2023 01/21/2023 2:44 PM CDT COVID: Suspected 01/21/2023 01/21/2023 01/21/2023 8:57 PM CDT documented as of this encounter Care Teams Deputy Head Relationship Specialty Start Date End Date Denys Smith MD PCP - General 09/14/17 03/02/22 Reji Lucero DO PCP - General Internal Medicine 03/03/22 02/01/23 Waqas Araujo MD PCP - General Family Practice 02/02/23 Jace Cheek MD Consulting Physician Neurosurgery 05/30/23 documented as of this encounter
--- OUTSIDE RECORDS SUMMARY | 2025-05-03 13:25 | XMS_ITS | Encounter Summary ---
Author Organization [facility] Address [address] [place] [address] Care Team Providers Care Cota Name Role Phone Denys Smith MD Primary Care Provider [phone] Reji Lucero DO Primary Care Provider [phone] Waqas Araujo MD Primary Care Provider [phone] Jace Cheek MD Unavailable [phone] Encounter Details Date Type Department Care Team (Late st Contact Info) Description 03/20/2018 Orders Only [facility] [address] [place] [address] Scanning, Provider Social History Tobacco Use Types Packs/Day Years Used Date Smoking Tobacco: Former Smokeless Tobacco: Never Alcohol Use Standard Drinks/Week Comments No 0 (1 standard drink = 0.6 oz pur e alcohol) Comments No Sex and Gender Information Value Date Recorded Sex Assigned at Not on file Legal Sex Female 11:42 PM FOOD PROCESSING PLANT MANAGER Gender Identity Female 05/18/2022 8:41 AM FOOD PROCESSING PLANT MANAGER Sexual Orientation Straight 05/18/2022 8: 41 AM FOOD PROCESSING PLANT MANAGER documented as of this encounter Plan of [...] documented as of this encounter Care Teams Cota Relationship Specialty Start Date End Date Denys Smith MD PCP - General 09/14/17 03/02/22 Reji Lucero DO PCP - General Internal Medicine 03/03/22 02/01/23 Waqas Araujo MD PCP - General Family Practice 02/02/23 Jace Cheek MD Consulting Physician Neurosurgery 05/30/23 documented as of this encounter
--- OUTSIDE RECORDS SUMMARY | 2025-05-03 13:25 | XMS_ITS | Encounter Summary ---
Author Organization [facility] Facility Care Team Providers Care Armored Car Driver Name Role Phone Unknown, Notinfile Primary Care Provider Unavail able Denys Smith MD Primary Care Provider [phone] Reji Lucero DO Primary Care Provider [phone] Waqas Araujo MD Primary Care Provider [phone] Jace Cheek MD Unavailable [phone] Encounter Details Date Type Department Care Team (Latest Contact Info) Description 09/12/2017 Orders Only [facility] CLINCONV ProviderLencho MD [address] [place] [address] Social History Tobacco Use Types Packs/Day Years Used Date Smoking Tobacco: Never Smokeless Tobacco: Never Alcohol Use Standard Drinks/Week Comments No 0 (1 standard drink = 0.6 oz pur e alcohol) Comments No Sex and Gender Information Value Date Recorded Sex Assigned at Not on file Legal Sex Female 11:42 PM ALLERGIST/IMMUNOLOGIST PHYSICIAN Gender Identity Female 05/18/2022 8:41 AM ALLERGIST/IMMUNOLOGIST PHYSICIAN Sexual Orientation Straight 05/18/2022 8: 41 AM ALLERGIST/IMMUNOLOGIST PHYSICIAN documented as of this encounter Plan of Treatment Not on file documented as of this encounter Procedures Procedure Name Priority Date/Time Associated Diagnosis Comments CARDIOLOGY REPORT 08/10/2018 12: 00 AM ALLERGIST/IMMUNOLOGIST PHYSICIAN documented in this encounter Results * CARDIOLOGY REPORT (08/10/2018 12:00 AM ALLERGIST/IMMUNOLOGIST PHYSICIAN) Anatomical Region Laterality Modality Other Narrative 08/10/2018 12:00 AM ALLERGIST/IMMUNOLOGIST PHYSICIAN Ordered by an unspecified provider. us Historical Provider CV CARDIAC SERVICES EDEN FOWLER Final Result documented in this encounter Visit Diagnoses Not on filedocumented in this encounter Additional Health Concerns Infection Onset Date Last Indicated Resolved Time COVID: Suspected 01/21/2023 01/21/2023 01/21/2023 2:44 PM CDT COVID: Suspected 01/21/2023 01/21/2023 01/21/2023 8:57 PM CDT documented as of this encounter Care Teams Armored Car Driver Relationship Specialty Start Date End Date Unknown, Notinfile PCP - General 09/12/17 09/13/17 Denys Smith MD PCP - General 09/14/17 03/02/22 Reji Lucero DO PCP - General Internal Medicine 03/03/22 02/01/23 Waqas Araujo MD PCP - General Family Practice 02/02/23 Jace Cheek MD Consulting Physician Neurosurgery 05/30/23 documented as of this encounter
--- OUTSIDE RECORDS SUMMARY | 2025-05-03 13:25 | XMS_ITS | Clinical Summary ---
Author Organization [facility] Address [address] [address] Care Team Providers Care Cryptography Teacher Name Role Phone Waqas Araujo MD Primary Care Provider [phone] Jace Cheek MD Unavailable [phone] Allergies No known active allergies Medications escitalopram [...] (03/30/2021): 2015 IMO Updt Hypertensive urgency Immunizations Immunization Administration Dates Next Due Influenza, [...] drink = 0.6 oz pur e alcohol) [facility] Utilities Answer Date Recorded In the past 12 months has th e electric, gas, oil, or water [employer] threatened to shut off services in your [...] week 05/16/2023 How often do you attend [facility] or gnosticist services? 1 to 4 times per year 05/16/2023 Do you belong to any clubs o r organizations such as presybeterian groups, unions, fraternal or athletic groups, or [...] place to sleep or slept in a longterm (including now)? No 05/16/2023 Personal Safety Answer Date Recorded Have you ever been in or are you currently in a harmful physical or emotional relationship or is someone making you feel afraid or unsafe? Denies 05/16/2023 Comments No Sex and Gender Information Value Date Recorded Sex Assigned at Not on file Legal Sex Female 11:42 PM WEB PRESS OPERATOR HELPER OFFSET Gender Identity Female 05/18/2022 8:41 AM WEB PRESS OPERATOR HELPER OFFSET Sexual Orientation Straight 05/18/2022 8: 41 AM WEB PRESS OPERATOR HELPER OFFSET Obstetrics History Last Filed Vital Signs Vital [...] 1954 DTaP/Tdap/Td Vaccine (1 - Tdap) 1965 Pneumococcal vaccine 65+ (1 of 1 - PCV) 2004 02/23/2013 Zoster Vaccine (1 of 2) 2004 Well Visit 65+ 2019 Fall Risk Assessment 05/19/2024 05/19/2023 Covid-19 Vaccine (3 - 2024-2 6 season) 2025 08/29/2020, 07/31/2020 Influenza Vaccine (#1) 2025 8, 04/30/2015, 04/24/2014, Additional history exists Hepatitis B Screening Completed 03/30/2021 Hepatitis C Screening Completed 03/30/2021 Medical Devices Implanted Type Area Hand Pleater Device Identifier Shelf Expiration Date Model / Serial / Lot Rent [employer] [place] Angio-Seal Vip 6fr Closere Device [id number] - [id number] Implanted:Qty: 1 on 03/18/2023 by Amparo Hinds MD at [facility] [employer] 08/10/2023 [id number] / / [id number] Procedures Procedure Name Priority Date/Time Associated Diagnosis [...] Edited Result - Final [facility]EL [facility] Department [place] [address] from Last 3 Months or Most Recently Relevant to Health Maintenance Insurance MEDICARE [facility] [place] [address] MEDICARE [place] [address] Advance Directives For more information, please contact: [phone] * Full Code (Latest Code Status on File) Date Activated Date Inactivated Comments 05/15/2023 3:30 PM 05/19/2023 9:11 PM * Full Code Date Activated Date Inactivated Comments 03/18/2023 11:16 AM 03/18/2023 5:54 PM * Full Code Date Activated Date Inactivated Comments 09/12/2017 1:59 AM 09/13/2017 5:14 PM Care Teams Cryptography Teacher Relationship Specialty Start Date End Date Waqas Araujo MD PCP - General Family Practice 02/02/23 Jace Cheek MD Consulting Physician Neurosurgery 05/30/23
--- OUTSIDE RECORDS SUMMARY | 2025-05-03 13:25 | XMS_ITS | Encounter Summary ---
Author Organization [facility] Address [address] [place] [address] Phone Care Team Providers Care Firer Kiln Name Role Phone Denys Smith MD Primary Care Provider [phone] Reji Lucero DO Primary Care Provider [phone] Waqas Araujo MD Primary Care Provider [phone] Jace Cheek MD Unavailable [phone] Encounter Details Date Type Department Care Team [...] on file Legal Sex Female 11:42 PM BRICKMASON Gender Identity Female 05/18/2022 8:41 AM BRICKMASON Sexual Orientation Straight 05/18/2022 8: 41 AM BRICKMASON documented as of this encounter Plan of [...] documented as of this encounter Care Teams Firer Kiln Relationship Specialty Start Date End Date Denys Smith MD PCP - General 09/14/17 03/02/22 Reji Lucero DO PCP - General Internal Medicine 03/03/22 02/01/23 Waqas Araujo MD PCP - General Family Practice 02/02/23 Jace Cheek MD Consulting Physician Neurosurgery 05/30/23 documented as of this encounter
--- OUTSIDE RECORDS SUMMARY | 2025-05-03 13:25 | XMS_ITS | Clinical Summary ---
Author Organization [facility] Address [address] [place] [address] Care Team Providers Care Clerk Operator Name Role Phone Tim Perera NP Primary Care Provider [phone] Allergies No known active allergies Medications escitalopram [...] Comments Blood Pressure 118/65 05/15/2019 11:[address] Pulse 61 05/15/2019 11:[address]STER Temperature 36.6 C (97.8 F) 05/15/2019 11:[address] TESTER Respiratory Rate 18 05/15/2019 11:[address]STER Oxygen Saturation 95% 05/15/2019 11:[address]STER Inhaled Oxygen Concentration - - Weight 88.5 [...] Scan (General) 2019 COVID-19 Vaccine ( - 2024-2 6 season) 2025 Influenza Adult (#1) 2025 Colorectal Cancer Screening Colonoscopy (10 Years) 05/15/2029 05/15/2019, 05/15/2019 RSV Immunization or 60+ Years (1 - 1-dose 75+ series) 2029 Hepatitis A Vaccines Aged Out No long er eligible based on patient's age to complete this topic Meningococcal B Vaccine Aged Out No l [...] Diagnosis Comments COLONOSCOPY Routine 05/15/2019 8:[address]STER from Last 3 Months or Most Recently Relevant to Health Maintenance Insurance [facility] MEDICARE Care Teams Clerk Operator Relationship Specialty Start Date End Date Tim Perera NP PCP - General NURSE PRACTITIONER 05/14/19
--- OUTSIDE RECORDS SUMMARY | 2025-05-03 13:25 | XMS_ITS | Clinical Summary ---
Author Organization [facility] Address [address] [place] [address] Care Team Providers Care Hot Water Heater Installer Name Role Phone Remington Walter MD Unavailable [phone] Reji Lucero DO Primary Care Provider [phone] Source Comments [facility],non-owned Affiliates and Associated Physician Practices is amultiple site organization consisting of ambulatory clinics and hospital sitesin [place], [place], [place] and [place]. This disclosure is being madepursuant to the Care Everywhere program and may not contain all information available regarding this patient. Last updated 18.[facility] Allergies No known active allergies [...] Comments Blood Pressure 122/74 08/12/2018 11:56 AM KEY ENTRY OPERATOR Pulse 60 08/12/2018 11:56 AM KEY ENTRY OPERATOR Temperature 36.7 C (98 F) 08/12/2018 11:56 AM KEY ENTRY OPERATOR Respiratory Rate 17 08/12/2018 11:56 AM KEY ENTRY OPERATOR Oxygen Saturation 97% 08/12/2018 11:56 AM KEY ENTRY OPERATOR Inhaled Oxygen Concentration - - Weight 95.3 kg (210 lb) 08/12/2018 11:56 AM KEY ENTRY OPERATOR Height 170.2 cm (5' 7) 08/12/2018 11:56 AM KEY ENTRY OPERATOR Body Mass Index 32.89 08/12/2018 11:56 AM KEY ENTRY OPERATOR Plan of Treatment Health Maintenance Due Date [...] this topic Medical Devices Implanted Type Area Coding Assistant Device Identifier Shelf Expiration Date Model / Serial / Lot All Bone [place] H[place] Implanted:Qty: 1 on 06/24/2014 by Remington Walter MD at [facility] Right: [employer] 02/07/2016 [id number] / / [id number] Tibial I Beam Fix Bar 71mm Implanted:Qty: 1 on 06/24/2014 by Remington Walter MD at [facility] Right: [employer] 05/09/2024 [id number] / / [id number] Kn Ins [place] Fem Cocr R-Intlok 62.5mm Implanted:Qty: 1 on 06/24/2014 by Remington Walter MD at [facility] Right: [employer] 11/07/2022 [id number] / / [id number] Butn Pat Arcom Wire Polyeth Xsm 28 X 8 Implanted:Qty: 1 on 06/24/2014 by Remington Walter MD at [facility] Right: [employer] 04/09/2019 [id number] / / [id number] Brdg Tib Magalys Stbl 12mm X 71mm Implanted:Qty: 1 on 06/24/2014 by Remington Walter MD at [facility] Right: [employer] 05/09/2019 [id number] / / [id number] Procedures Procedure Name Priority Date/Time Associated Diagnosis Comments BASIC METABOLIC PANEL (CALCIUM TOTAL) AM Draw 06/25/2014 4:20 AM KEY ENTRY OPERATOR from Last 3 Months or Most Recently Relevant to Health Maintenance Results * (ABNORMAL) BASIC METABOLIC PANEL (CALCIUM TOTAL) (06/25/2014 4:20 AM KEY ENTRY OPERATOR) Glucose 99 74 - 106 mg/dL 06/25/2014 4:50 AM [facility] Sodium 136 136 - 145 mmol/L 06/25/2014 4:50 AM [facility] Potassium 4.0 3.5 - 5.1 mmol/L 06/25/2014 4:50 AM [facility] Chloride 104 98 - 107 mmol/L 06/25/2014 4:50 AM [facility] CO2 27 22 - 31 mmol/L 06/25/2014 4:50 AM [facility] Calcium 8.4(L) 8.5 - 10.1 mg/dL 06/25/2014 4:50 AM [facility] Anion Gap 5 5 - 15 mmol/L 06/25/2014 4:50 AM [facility] BUN 14 7 - 21 mg/dL 06/25/2014 4:50 AM [facility] Creatinine 1.07 0.50 - 1.30 mg/dL 06/25/2014 4:50 AM [facility] eGFR by MDRD 52(L) >60 mL/min/1.7 3m2 06/25/2014 4:50 AM [facility] eGFR by MDRD >60 >60 mL/min/1.7 3m2 06/25/2014 4:50 AM [facility] Blood BLOOD SPECIMEN / Unknown 06/25/2014 4:20 AM KEY ENTRY OPERATOR 06/25/2014 4:28 AM [facility] us Octavia Dover MD LAB - CHEMISTRY ORDERABLES Final Result [facility] [address] [place] [address] from Last 3 Months or Most Recently Relevant to Health Maintenance Insurance [facility] Address: [address] [place] [address] MEDICARE [employer] Advance Directives * Full Code (Latest Code Status on File) Date Activated Date Inactivated Comments 06/24/2014 11:53 AM 06/26/2014 7:42 PM Care Teams Hot Water Heater Installer Relationship Specialty Start Date End Date Reji Lucero DO [address] [place] [address] PCP - General 07/06/22 [place] [id number] [facility] [address] [place] [id number] Orthopedic Surgery 05/13/14
--- OUTSIDE RECORDS SUMMARY | 2025-05-03 13:25 | XMS_ITS | Encounter Summary ---
Author Organization [facility] Care Team Providers Care Generation Engineer Name Role Phone Denys Smith MD Primary Care Provider [phone] Reji Lucero DO Primary Care Provider [phone] Waqas Araujo MD Primary Care Provider [phone] Jace Cheek MD Unavailable [phone] Encounter Details Date Type Department Care Team (Latest Contact Info) Description 06/22/2018 Orders Only [facility] CLINCON[facility] ProviderLencho MD [address] [place] [id number] Social History Tobacco Use Types Packs/Day Years Used Date Smoking Tobacco: Former Smokeless Tobacco: Never Alcohol Use Standard Drinks/Week Comments No 0 (1 standard drink = 0.6 oz pur e alcohol) Comments No Sex and Gender Information Value Date Recorded Sex Assigned at Not on file Legal Sex Female 11:42 PM ENERGY ECONOMIST Gender Identity Female 05/18/2022 8:41 AM ENERGY ECONOMIST Sexual Orientation Straight 05/18/2022 8: 41 AM ENERGY ECONOMIST documented as of this encounter Plan of Treatment Not on file documented as of this encounter Procedures Procedure Name Priority Date/Time Associated Diagnosis Comments CARDIOLOGY REPORT 06/22/2018 12: 00 AM ENERGY ECONOMIST documented in this encounter Results * CARDIOLOGY REPORT (06/22/2018 12:00 AM ENERGY ECONOMIST) Anatomical Region Laterality Modality Other Narrative 06/22/2018 12:00 AM ENERGY ECONOMIST Ordered by an unspecified provider. us Historical Provider [facility] Final Result documented in this encounter Visit Diagnoses Not on filedocumented in this encounter Additional Health Concerns Infection Onset Date Last Indicated Resolved Time COVID: Suspected 01/21/2023 01/21/2023 01/21/2023 2:44 PM CDT COVID: Suspected 01/21/2023 01/21/2023 01/21/2023 8:57 PM CDT documented as of this encounter Care Teams Generation Engineer Relationship Specialty Start Date End Date Denys Smith MD PCP - General 09/14/17 03/02/22 Reji Lucero DO PCP - General Internal Medicine 03/03/22 02/01/23 Waqas Araujo MD PCP - General Family Practice 02/02/23 Jace Cheek MD Consulting Physician Neurosurgery 05/30/23 documented as of this encounter
--- OUTSIDE RECORDS SUMMARY | 2025-05-03 13:25 | XMS_ITS | Clinical Summary ---
Author Organization [facility] Address [address] [place] [address] Phone Care Team Providers Care Housemaid Name Role Phone Reji Lucero Primary Care Provider [phone] Allergies No known active allergies Medications hydroxychloroqu [...] (#1) 2025 Insurance MEDICARE [employer]ET[employer] Care Teams Housemaid Relationship Specialty Start Date End Date Reji Lucero DO [address] [place] [address] PCP - General Internal Medicine 05/03/22
== END 2025-05-03 13:22 | disposition home or self-care (01) ==
LOC: ANHFOHIMG 13:22
PROVIDERS: PCP Nurse Practitioner Family; Visit Provider Nurse Practitioner Family
DX: M85.89 Other specified disorders of bone density and structure, multiple sites (principal); Z78.0 Asymptomatic menopausal state
CPT/HCPCS: 77080